=== PATIENT | female | born 2000 | race Caucasian/White ===

== ENCOUNTER 2020-04-25 11:25 | Emergency (ER) | payer OTHER ==
[2020-04-25 11:57] LABS: BASOPHILS % (AUTO) 0.5 %; EOSINOPHILS % (AUTO) 0.4 %; HGB - HEMOGLOBIN 15.2 g/dL (12.0-16.0); LYMPHOCYTES # (AUTO) 1.7 10^3/uL (1.5-3.5); LYMPHOCYTES % (AUTO) 21.4 %; MEAN CORPUSCULAR HEMOGLOBIN 30.5 pg (27.0-31.0); MEAN CORPUSCULAR HGB CONC 34.2 g/dL (32.0-36.0); MEAN CORPUSCULAR VOLUME 89.2 fL (81.0-99.0); MEAN PLATELET VOLUME 9.5 fL (7.9-10.8); MONOCYTES # (AUTO) 0.3 10^3/uL (0.0-1.0); MONOCYTES % (AUTO) 3.7 %; NEUTROPHILS # (AUTO) 5.7 10^3/uL (1.5-6.6); NEUTROPHILS % (AUTO) 73.6 %; PLT - PLATELET COUNT 303 10^3/uL (130-450); RED BLOOD COUNT 4.98 10^6/uL (4.20-5.40); RED CELL DISTRIBUTION WIDTH 11.9 % (12.0-15.0); WHITE BLOOD COUNT 7.8 x10^3/uL (4.8-10.8)
[2020-04-25 12:11] LABS: ALBUMIN 4.6 g/dL (3.2-5.5); ALBUMIN/GLOBULIN RATIO 1.2 (1.0-2.2); CALCIUM 9.3 mg/dL (8.5-10.3); CREATININE 0.7 mg/dL (0.4-1.0); TOTAL PROTEIN 8.3 g/dL (6.7-8.2)
--- NOTE | 2020-04-25 12:23 | ED Physician Documentation ---
History of Present Illness - Stated complaint Stated Complaint: N/V - Chief complaint Chief Complaint: Abd Pain - History obtained from History obtained from: Patient - History of Present Illness Timing: Prior to arrival Pain level max: 2 Pain level now: 1 - Treatment prior to arrival Treatment prior to arrival: benadryl - Additonal information Additional information: 19 year old female here with cc of progressive n/v for the last week. reports that she is newly . lmp 03/13/2020. Denies abdominal pain other than some cramping, prior to vomiting. She states that for the last 3 days, she has been unable to keep any food down. seh has tried taking Benadryl, to little relief. denies in point pelvic pain, vaginal bleeding, discharge. no dysuria denies pertinent pmh. no pertinent surgical hx. No tobacco, etoh meds: none pt is [place] to [place] 05/24/2020 to establish care Review of Systems Constitutional: reports: Fatigue. denies: Fever, Chills, Myalgias Nose: denies: Rhinorrhea / runny nose Cardiac: denies: Chest pain / pressure, Palpitations, Pedal edema Respiratory: denies: Dyspnea, Cough GI: reports: Nausea, Vomiting. denies: Diarrhea, Hematemesis, Bloody / black stool : reports: LMP (03/13/20). denies: Dysuria, Frequency Skin: denies: Rash Musculoskeletal: denies: Neck pain, Back pain, Extremity pain Neurologic: denies: Generalized weakness, Focal weakness Psychiatric: denies: Depressed, Suicidal Endocrine: denies: Polydypsia, Polyuria, Polyphagia Immunocompromised: denies: Immunocompromised PD PAST MEDICAL HISTORY - Present Medications Home Medications: Ambulatory Orders Medication Instructions Recorded Confirmed Ondansetron Odt [Zofran] 4 mg TL Q6H PRN #30 tablet 04/25/20 No122/Iron/Folic Acid 1 tab PO DAILY 04/25/20 04/25/20 [ Multi Tablet] - Allergies Allergies/Adverse Reactions: Allergies Allergy/AdvReac Type Severity Reaction Status Date / Time Penicillins Allergy Unknown Verified 04/25/20 11:38 PD ED PE NORMAL - Vitals Vital signs reviewed: Yes - General General: Alert and oriented X 3, No acute distress, Well developed/nourished - HEENT HEENT: Atraumatic, EOMI, Pharynx benign - Cardiac Cardiac: RRR, No murmur, No gallop, No rub, Strong equal pulses - Respiratory Respiratory: No respiratory distress, Clear bilaterally - Abdomen Abdomen: Normal bowel sounds, Non tender - Female Female : Deferred - Back Back: No CVA TTP - Derm Derm: Normal color, Warm and dry - Extremities Extremities: No deformity, No tenderness to palpate - Neuro Neuro: Alert and oriented X 3, investigator narcotics 2-12 intact, No motor deficit Results - Vitals Vitals: Vital Signs - 24 hr 04/25/20 04/25/20 04/25/20 11:39 13:41 15:00 Temperature 36.7 C Heart Rate 89 82 86 Respiratory 18 22 20 Rate Blood Pressure 139/71 H 111/69 94/57 L O2 Saturation 100 98 99 Oxygen O2 Source Room air - Labs Labs: Laboratory Tests 04/25/20 04/25/20 04/25/20 11:53 11:53 11:53 WBC 7.8 RBC 4.98 Hgb 15.2 Hct 44.4 MCV 89.2 MCH 30.5 MCHC 34.2 RDW 11.9 L Plt Count 303 MPV 9.5 Neut # (Auto) 5.7 Lymph # (Auto) 1.7 [place] # (Auto) 0.3 Eos # (Auto) 0.0 Baso # (Auto) 0.0 Absolute Nucleated RBC 0.00 Nucleated RBC % 0.0 Sodium 134 L Potassium 3.5 Chloride 104 Carbon Dioxide 20 L Anion Gap 10.0 BUN 11 Creatinine 0.7 Estimated GFR (MDRD) 106 Glucose 92 Calcium 9.3 Total Bilirubin 1.0 AST 19 ALT 29 Alkaline Phosphatase 65 Total Protein 8.3 H Albumin 4.6 Globulin 3.7 Albumin/Globulin Ratio 1.2 Lipase 29 HCG, Quant 53471.00 Urine Color Urine Clarity Urine pH Ur Specific [place] Urine Protein Urine Glucose (UA) Urine Ketones Urine Occult Blood Urine Nitrite Urine Bilirubin Urine Urobilinogen Ur Leukocyte Esterase Ur Microscopic Review Urine Culture Comments 04/25/20 13:48 WBC RBC Hgb Hct MCV MCH MCHC RDW Plt Count MPV Neut # (Auto) Lymph # (Auto) [place] # (Auto) Eos # (Auto) Baso # (Auto) Absolute Nucleated RBC Nucleated RBC % Sodium Potassium Chloride Carbon Dioxide Anion Gap BUN Creatinine Estimated GFR (MDRD) Glucose Calcium Total Bilirubin AST ALT Alkaline Phosphatase Total Protein Albumin Globulin Albumin/Globulin Ratio Lipase HCG, Quant Urine Color DARK YELLOW Urine Clarity CLEAR Urine pH 6.0 Ur Specific [place] >=1.030 H Urine Protein NEGATIVE Urine Glucose (UA) NEGATIVE Urine Ketones >=80 H Urine Occult Blood NEGATIVE Urine Nitrite NEGATIVE Urine Bilirubin NEGATIVE Urine Urobilinogen 0.2 (NORMAL) Ur Leukocyte Esterase NEGATIVE Ur Microscopic Review NOT INDICATED Urine Culture Comments NOT INDICATED - Rads (name of study) pelvic US Radiology: Final report received (Single live IUP measured at 6w3d. HR 122. no worrisome features) PD MEDICAL DECISION MAKING - ED course Complexity details: reviewed results, re-evaluated patient, considered differential, d/w patient ED course: 19 year old female here with cc of persistent n/v for the last week. 1st trimester - Labs reviewed and no acute or worrisome abnormalities. no e/o UTI; mild ketones expected with persistent vomiting - pelvic US completed and showed live IUP at 6w3d. no e/o hemorrhage. Pt in point denies pelvic pain, vaginal bleeding - pt given 1 liter IVF in ED and 4 mg zofran; following that she was able to tolerate simple clears and bite of food - will plan to dc home with limited rx for zofran. Notified that she should f/u with OB provider to establish care after this ED visit with in the week - emergent return precautions discussed for miscarriage s/s Departure - Departure Disposition: 01 Home, Self Care Clinical Impression: Vomiting during Qualifiers: Weeks of gestation: less than 8 weeks Qualified Code(s): Z3A.01 - Less than 8 weeks gestation of Condition: Stable Record reviewed to determine appropriate education?: Yes Instructions: ED Nausea Vomiting Prescriptions: Ondansetron Odt [Zofran] 4 mg TL Q6H PRN #30 tablet PRN Reason: Nausea / Vomiting Comments: Kadie, I am glad you feel better. Your labs and urine today look goo. The pelvic ultrasound showed that you are about 6weeks 3 days I have prescribed a medication called zofran to help with nausea. take up to 3 times a day. Eat small frequent sips fluids and bites of food throughout the day please schedule [place] here for fevers, dehydrated, feeling faint, if you have pelvic pain or vaginal bleeding
[2020-04-25] MEDS ORDERED: SODIUM CHLORIDE 0.9% 1,000 ML IV STA (12:37)
[2020-04-25] MEDS ORDERED: ONDANSETRON 4 MG/2 ML VIAL IVP STA (12:40)
[2020-04-25 13:55] LABS: BILIRUBIN,URINE NEGATIVE (NEGATIVE); GLUCOSE, URINE (UA) NEGATIVE (NEGATIVE); KETONES,URINE (UA) >=80 mg/dL (NEGATIVE); LEUKOCYTE ESTERASE, URINE NEGATIVE (NEGATIVE); NITRITE,URINE NEGATIVE (NEGATIVE); OCCULT BLOOD,URINE NEGATIVE (NEGATIVE); PROTEIN,URINE NEGATIVE (NEGATIVE); UROBILINOGEN,URINE 0.2 (NORMAL) E.U./dL (NORMAL)
[2020-04-25 13:56] LABS: CLARITY,URINE CLEAR (CLEAR)
[2020-04-25 15:05] VITALS: BP 94/57
--- NOTE | 2020-04-25 15:09 | Ultrasound Report ---
Reason: vomiting; establish IUP Procedure Date: 04/25/2020 Accession Number: [id number] / [id number] Procedure: US - OB First Trimester CPT Code: Final Report FULL RESULT: PROCEDURE: OB First Trimester INDICATIONS: vomiting; establish IUP OUTSIDE/PRIOR DATING DATA: Last menstrual period (LMP): 03/13/2020. LMP-based estimated date of delivery (TIN): 12/18/2020. First dating scan (date and location): 04/25/2020. Estimated date of delivery (TIN) from first dating scan: 12/18/2020. TECHNIQUE: Real-time scanning was performed of the fetus and maternal pelvic organs, with image documentation. COMPARISON: None. FINDINGS: Embryo: Single living intrauterine gestation measuring approximately 8 weeks and 0 days by mean gestational sac diameter of 2.9 cm. [place]-rump length measures 0.6 cm correlate with approximately 6 weeks and 3 days. heart rate measured at 122 bpm. No evidence for perigestational hemorrhage. Measurement variability in dating: +/- 4 weeks by LMP, +/- 7 days by mean sac diameter (use before 6 weeks gestation if crown-rump length not able to be measured), +/- 5 days by crown-rump length (6-12 weeks gestation). Maternal organs: Ovaries show a dominant right ovarian follicle. Nabothian cysts noted in the cervix. Limited images through the kidneys demonstrate no hydronephrosis. IMPRESSION: Single living intrauterine gestation with an estimated sonographic gestational age of approximately 6 weeks and 3 days based off crown-rump length measurement. Recommend continued clinical surveillance and follow-up routine second trimester anatomic screening survey. Reviewed by: Daniel Singer MD on 04/25/2020 3:08 PM PDT Approved by: Daniel Singer MD on 04/25/2020 3:08 PM PDT Station ID: [id number]
--- NOTE | 2020-04-25 15:10 | Ultrasound Report ---
Reason: to establish IUP if unable to see on transabdomina Procedure Date: 04/25/2020 Accession Number: [id number] / [id number] Procedure: US - OB Transvaginal CPT Code: Final Report FULL RESULT: PROCEDURE: OB First Trimester INDICATIONS: vomiting; establish IUP OUTSIDE/PRIOR DATING DATA: Last menstrual period (LMP): 03/13/2020. LMP-based estimated date of delivery (TIN): 12/18/2020. First dating scan (date and location): 04/25/2020. Estimated date of delivery (TIN) from first dating scan: 12/18/2020. TECHNIQUE: Real-time scanning was performed of the fetus and maternal pelvic organs, with image documentation. COMPARISON: None. FINDINGS: Embryo: Single living intrauterine gestation measuring approximately 8 weeks and 0 days by mean gestational sac diameter of 2.9 cm. [place]-rump length measures 0.6 cm correlate with approximately 6 weeks and 3 days. heart rate measured at 122 bpm. No evidence for perigestational hemorrhage. Measurement variability in dating: +/- 4 weeks by LMP, +/- 7 days by mean sac diameter (use before 6 weeks gestation if crown-rump length not able to be measured), +/- 5 days by crown-rump length (6-12 weeks gestation). Maternal organs: Ovaries show a dominant right ovarian follicle. Nabothian cysts noted in the cervix. Limited images through the kidneys demonstrate no hydronephrosis. IMPRESSION: Single living intrauterine gestation with an estimated sonographic gestational age of approximately 6 weeks and 3 days based off crown-rump length measurement. Recommend continued clinical surveillance and follow-up routine second trimester anatomic screening survey. Reviewed by: Daniel Singer MD on 04/25/2020 3:08 PM PDT Approved by: Daniel Singer MD on 04/25/2020 3:08 PM PDT Station ID: [id number]
== END 2020-04-25 16:29 | disposition home or self-care (01) ==
LOC: ED 11:25
DX: O21.0 Mild hyperemesis gravidarum (principal); Z3A.01 Less than 8 weeks gestation of pregnancy
CPT/HCPCS: 36415; 76801; 76817; 80053; 81001; 81003; 83690; 84702; 85025; 87086; 96361; 96374; 99284

== ENCOUNTER 2020-05-05 13:50 | Emergency (ER) | payer OTHER ==
[2020-05-05] MEDS ORDERED: METOCLOPRAMIDE 10 MG/2 ML VIAL IVP STA (14:04)
[2020-05-05] MEDS ORDERED: SODIUM CHLORIDE 0.9% 1,000 ML IV STA (14:04)
--- NOTE | 2020-05-05 14:05 | ED Physician Documentation ---
PD HPI ABD PAIN - Stated complaint Stated Complaint: NAUSEA/VOMITING - Chief complaint Chief Complaint: Abd Pain - History obtained from History obtained from: Patient (G1, P0 at about 7 weeks and 6 days gestation presents with continued vomiting during this . Is associated with mild lower abdominal pain and some brownish vaginal discharge. She has been taking oral Zofran without relief.) Review of Systems Ten Systems: 10 systems reviewed and negative Constitutional: denies: Fever, Chills Cardiac: denies: Chest pain / pressure, Palpitations Respiratory: denies: Dyspnea, Cough PD PAST MEDICAL HISTORY - Past Medical History Past Medical History: No - Past Surgical History Past Surgical History: No - Present Medications Home Medications: Ambulatory Orders Medication Instructions Recorded Confirmed Ondansetron Odt [Zofran] 4 mg TL Q6H PRN #30 tablet 04/25/20 No122/Iron/Folic Acid 1 tab PO DAILY 04/25/20 04/25/20 [ Multi Tablet] Doxylamine/Pyridoxine HCl 1 each PO Q6H #40 tablet. 05/05/20 [Carlton Mera 10-10 mg Tablet] Ondansetron Odt [Zofran] 4 mg TL Q6H PRN #30 tablet 05/05/20 - Allergies Allergies/Adverse Reactions: Allergies Allergy/AdvReac Type Severity Reaction Status Date / Time Penicillins Allergy Unknown Verified 05/05/20 13:55 - Social History Does the pt smoke?: No Smoking Status: Never smoker Does the pt drink ETOH?: No Does the pt have substance abuse?: No - Family History Family history: reports: Other (mom had Hyperemesis with pregs) PD ED PE NORMAL - Vitals Vital signs reviewed: Yes - General General: Alert and oriented X 3, No acute distress - HEENT HEENT: PERRL, EOMI - Neck Neck: Supple, no meningeal sign, No bony TTP - Cardiac Cardiac: RRR, No murmur - Respiratory Respiratory: No respiratory distress, Clear bilaterally - Abdomen Abdomen: Normal bowel sounds, Soft, Non tender - Female Female : Other (Bedside ultrasound demonstrates single live intrauterine with heart rate of about 160.) - Back Back: No CVA TTP, No spinal TTP - Derm Derm: Normal color, Warm and dry - Extremities Extremities: No edema, No calf tenderness / cord - Neuro Neuro: Alert and oriented X 3, Normal speech Results - Vitals Vitals: Vital Signs - 24 hr 05/05/20 05/05/20 05/05/20 13:53 15:30 16:49 Temperature 36.1 C L 36.6 C 36.7 C Heart Rate 90 75 73 Respiratory 16 18 18 Rate Blood Pressure 118/74 103/64 103/60 O2 Saturation 100 98 100 Oxygen O2 Source Room air - Labs Labs: Laboratory Tests 05/05/20 05/05/20 05/05/20 14:35 14:35 14:35 WBC 7.5 RBC 4.54 Hgb 14.0 Hct 39.7 MCV 87.4 MCH 30.8 MCHC 35.3 RDW 11.7 L Plt Count 267 MPV 9.9 Neut # (Auto) 5.7 Lymph # (Auto) 1.4 L [place] # (Auto) 0.4 Eos # (Auto) 0.0 Baso # (Auto) 0.0 Absolute Nucleated RBC 0.00 Nucleated RBC % 0.0 Sodium 136 Potassium 3.7 Chloride 101 Carbon Dioxide 22 Anion Gap 13.0 BUN 12 Creatinine 0.6 Estimated GFR (MDRD) 126 Glucose 85 Calcium 9.3 Total Bilirubin 0.9 AST 14 ALT 16 Alkaline Phosphatase 52 Total Protein 7.9 Albumin 4.4 Globulin 3.5 Albumin/Globulin Ratio 1.3 Lipase 29 Urine Color YELLOW Urine Clarity CLEAR Urine pH 6.0 Ur Specific [place] >=1.030 H Urine Protein NEGATIVE Urine Glucose (UA) NEGATIVE Urine Ketones >=80 H Urine Occult Blood TRACE-INTA Urine Nitrite NEGATIVE Urine Bilirubin NEGATIVE Urine Urobilinogen 0.2 (NORMAL) Ur Leukocyte Esterase NEGATIVE Ur Microscopic Review NOT INDICATED Urine Culture Comments NOT INDICATED PD MEDICAL DECISION MAKING - ED course ED course: G1, P0 early with hyperemesis, has ketonuria and high spec gravity blood work looks normal. Feeling better after Reglan and IV fluids here. Tolerated oral challenge well. Discussed case with OB on-call, Dr. Lam who recommends diclegis and Zofran in a scheduled manner. Departure - Departure Disposition: 01 Home, Self Care Clinical Impression: Hyperemesis gravidarum Condition: Good Record reviewed to determine appropriate education?: Yes Instructions: ED Nausea Vomiting Prescriptions: Doxylamine/Pyridoxine HCl [Carlton Mera 10-10 mg Tablet] 1 each PO Q6H #40 tablet. Ondansetron Odt [Zofran] 4 mg TL Q6H PRN #30 tablet PRN Reason: Nausea / Vomiting Comments: Return anytime if worse, follow-up with OB as scheduled. I did speak with the OB today and she recommends that you take both Zofran and likely just in a scheduled manner every 6 hours, not just as needed when you vomit. Discharge Date/Time: 05/05/20 16:59
[2020-05-05 14:41] LABS: BASOPHILS % (AUTO) 0.4 %; EOSINOPHILS % (AUTO) 0.3 %; LYMPHOCYTES # (AUTO) 1.4 10^3/uL (1.5-3.5); LYMPHOCYTES % (AUTO) 18.5 %; MEAN CORPUSCULAR HEMOGLOBIN 30.8 pg (27.0-31.0); MEAN CORPUSCULAR HGB CONC 35.3 g/dL (32.0-36.0); MEAN CORPUSCULAR VOLUME 87.4 fL (81.0-99.0); MEAN PLATELET VOLUME 9.9 fL (7.9-10.8); MONOCYTES # (AUTO) 0.4 10^3/uL (0.0-1.0); MONOCYTES % (AUTO) 4.8 %; NEUTROPHILS # (AUTO) 5.7 10^3/uL (1.5-6.6); NEUTROPHILS % (AUTO) 75.7 %; PLT - PLATELET COUNT 267 10^3/uL (130-450); RED BLOOD COUNT 4.54 10^6/uL (4.20-5.40); RED CELL DISTRIBUTION WIDTH 11.7 % (12.0-15.0); WHITE BLOOD COUNT 7.5 x10^3/uL (4.8-10.8)
[2020-05-05 14:58] LABS: ALBUMIN 4.4 g/dL (3.2-5.5); ALBUMIN/GLOBULIN RATIO 1.3 (1.0-2.2); BILIRUBIN,TOTAL 0.9 mg/dL (0.2-1.0); CALCIUM 9.3 mg/dL (8.5-10.3); CREATININE 0.6 mg/dL (0.4-1.0); TOTAL PROTEIN 7.9 g/dL (6.7-8.2)
[2020-05-05] MEDS ORDERED: ACETAMINOPHEN 325 MG TABLET PO STA (15:04)
[2020-05-05] MEDS ORDERED: FAMOTIDINE 20 MG/2 ML SYRINGE IVP STA (15:04)
[2020-05-05 15:53] LABS: BILIRUBIN,URINE NEGATIVE (NEGATIVE); CLARITY,URINE CLEAR (CLEAR); GLUCOSE, URINE (UA) NEGATIVE (NEGATIVE); KETONES,URINE (UA) >=80 mg/dL (NEGATIVE); LEUKOCYTE ESTERASE, URINE NEGATIVE (NEGATIVE); NITRITE,URINE NEGATIVE (NEGATIVE); OCCULT BLOOD,URINE TRACE-INTA (NEGATIVE); PROTEIN,URINE NEGATIVE (NEGATIVE); UROBILINOGEN,URINE 0.2 (NORMAL) E.U./dL (NORMAL)
[2020-05-05] MEDS ORDERED: DEXTROSE 5%-LACTATED RINGERS 1,000 ML IV SCH (16:00)
[2020-05-05 16:50] VITALS: BP 103/60
== END 2020-05-05 16:59 | disposition home or self-care (01) ==
LOC: ED 13:50
DX: O21.0 Mild hyperemesis gravidarum (principal); O99.89 Other specified diseases and conditions complicating pregnancy, childbirth and the puerperium; R82.4 Acetonuria; Z3A.01 Less than 8 weeks gestation of pregnancy
CPT/HCPCS: 36415; 80053; 81003; 83690; 85025; 96361; 96374; 96375; 99283; 99284; A9270; J2765; 81001; 87086

== ENCOUNTER 2020-05-11 10:54 | Emergency (ER) | payer OTHER ==
[2020-05-11] MEDS ORDERED: SODIUM CHLORIDE 0.9% 1,000 ML IV STA ×2 (11:32→13:19)
[2020-05-11] MEDS ORDERED: PROMETHAZINE INJ 25 MG in SODIUM CHLORIDE 0.9% 50 ML IV STA (11:32)
[2020-05-11 11:53] LABS: ALBUMIN 4.5 g/dL (3.2-5.5); ALBUMIN/GLOBULIN RATIO 1.1 (1.0-2.2); BILIRUBIN,TOTAL 0.9 mg/dL (0.2-1.0); CALCIUM 9.8 mg/dL (8.5-10.3); CREATININE 0.6 mg/dL (0.4-1.0); TOTAL PROTEIN 8.7 g/dL (6.7-8.2)
[2020-05-11 12:00] LABS: BASOPHILS % (AUTO) 0.3 %; EOSINOPHILS % (AUTO) 0.2 %; HGB - HEMOGLOBIN 14.7 g/dL (12.0-16.0); LYMPHOCYTES # (AUTO) 1.4 10^3/uL (1.5-3.5); MEAN CORPUSCULAR HEMOGLOBIN 29.6 pg (27.0-31.0); MEAN CORPUSCULAR HGB CONC 34.6 g/dL (32.0-36.0); MEAN CORPUSCULAR VOLUME 85.5 fL (81.0-99.0); MEAN PLATELET VOLUME 10.2 fL (7.9-10.8); MONOCYTES # (AUTO) 0.5 10^3/uL (0.0-1.0); MONOCYTES % (AUTO) 4.8 %; NEUTROPHILS # (AUTO) 7.8 10^3/uL (1.5-6.6); NEUTROPHILS % (AUTO) 80.4 %; PLT - PLATELET COUNT 291 10^3/uL (130-450); RED BLOOD COUNT 4.97 10^6/uL (4.20-5.40); RED CELL DISTRIBUTION WIDTH 11.8 % (12.0-15.0); WHITE BLOOD COUNT 9.6 x10^3/uL (4.8-10.8)
[2020-05-11 13:13] LABS: GLUCOSE, URINE (UA) NEGATIVE (NEGATIVE); KETONES,URINE (UA) >=80 mg/dL (NEGATIVE); LEUKOCYTE ESTERASE, URINE NEGATIVE (NEGATIVE); NITRITE,URINE NEGATIVE (NEGATIVE); OCCULT BLOOD,URINE SMALL (NEGATIVE); PH,URINE 5.5 PH (5.0-7.5); PROTEIN,URINE 30 mg/dL (NEGATIVE); UROBILINOGEN,URINE 0.2 (NORMAL) E.U./dL (NORMAL)
[2020-05-11 13:17] LABS: BILIRUBIN,URINE NEGATIVE (NEGATIVE); CLARITY,URINE CLEAR (CLEAR); ICTOTEST,URINE NEGATIVE
[2020-05-11 13:21] LABS: BACTERIA,URINE Few /HPF (None Seen); RBC,URINE 0-5 /HPF (0-5); SQUAMOUS EPITHELIAL CELL,UR MANY Squamous (<= Few)
[2020-05-11] MEDS ORDERED: ONDANSETRON 4 MG/2 ML VIAL IVP STA (14:08)
[2020-05-11 15:04] VITALS: BP 108/66
--- NOTE | 2020-05-11 15:04 | ED Physician Documentation ---
History of Present Illness - Stated complaint Stated Complaint: VOMITING - Chief complaint Chief Complaint: Abd Pain - History obtained from History obtained from: Patient - Additonal information Additional information: Patient comes emergency department complaining of nausea and vomiting for the past 2 weeks since hitting the 6-week alma of her . Patient states that the nausea and vomiting seem to have gotten worse this time is gone on, and that for the past few days, she has not been able to keep anything down. She has been taking Zofran at home, as well as Benadryl, which were prescribed by her OB. However, she states that these did not seem to be working. Patient states that she is only otherwise on vitamins. Patient states she is otherwise healthy. This is her first . She denies any dysuria or vaginal bleeding. She has had an ultrasound which is demonstrated an intrauterine . No other complaints at this time. Review of Systems Ten Systems: 10 systems reviewed and negative Constitutional: reports: Reviewed and negative Eyes: reports: Reviewed and negative Ears: reports: Reviewed and negative Nose: reports: Reviewed and negative Throat: reports: Reviewed and negative Cardiac: reports: Reviewed and negative Respiratory: reports: Reviewed and negative GI: reports: Nausea, Vomiting : reports: Reviewed and negative Skin: reports: Reviewed and negative Musculoskeletal: reports: Reviewed and negative Neurologic: reports: Reviewed and negative Psychiatric: reports: Reviewed and negative Endocrine: reports: Reviewed and negative Immunocompromised: reports: Reviewed and negative PD PAST MEDICAL HISTORY - Past Medical History Cardiovascular: None Respiratory: None Neuro: None Endocrine/Autoimmune: None GI: None HVAC RESIDENTIAL SERVICE TECHNICIAN: None : None HEENT: None Psych: None Musculoskeletal: None Derm: None - Past Surgical History Past Surgical History: No - Present Medications Home Medications: Ambulatory Orders Medication Instructions Recorded Confirmed Ondansetron Odt [Zofran] 4 mg TL Q6H PRN #30 tablet 04/25/20 No122/Iron/Folic Acid 1 tab PO DAILY 04/25/20 04/25/20 [ Multi Tablet] Doxylamine/Pyridoxine HCl 1 each PO Q6H #40 tablet. 05/05/20 [[place] Mera 10-10 mg Tablet] Ondansetron Odt [Zofran] 4 mg TL Q6H PRN #30 tablet 05/05/20 Promethazine Supp [Phenergan Supp] 25 mg TN Q6H PRN #30 supp 05/11/20 - Allergies Allergies/Adverse Reactions: Allergies Allergy/AdvReac Type Severity Reaction Status Date / Time Penicillins Allergy Unknown Verified 05/11/20 10:59 - Social History Does the pt smoke?: No Smoking Status: Never smoker Does the pt drink ETOH?: No Does the pt have substance abuse?: No PD ED PE NORMAL - Vitals Vital signs reviewed: Yes - General General: Alert and oriented X 3, No acute distress - HEENT HEENT: Atraumatic, PERRL, EOMI, Moist mucous membranes - Neck Neck: Supple, no meningeal sign - Cardiac Cardiac: RRR, No murmur, Strong equal pulses - Respiratory Respiratory: No respiratory distress, Clear bilaterally - Abdomen Abdomen: Soft, Non distended, Other (Mild bilateral lower quadrant tenderness without rebound or guarding.) - Back Back: No CVA TTP - Derm Derm: Normal color, Warm and dry, No rash - Extremities Extremities: No deformity - Neuro Neuro: Alert and oriented X 3 - Psych Psych: Normal mood, Normal affect Results - Vitals Vitals: Vital Signs - 24 hr 05/11/20 05/11/20 05/11/20 10:59 13:02 15:00 Temperature 37.1 C 36.8 C Heart Rate 108 H 89 87 Respiratory 17 18 15 Rate Blood Pressure 144/82 H 110/68 108/66 O2 Saturation 99 97 100 Oxygen O2 Source Room air - Labs Labs: Laboratory Tests 05/11/20 05/11/20 05/11/20 11:10 11:10 11:10 WBC 9.6 RBC 4.97 Hgb 14.7 Hct 42.5 MCV 85.5 MCH 29.6 MCHC 34.6 RDW 11.8 L Plt Count 291 MPV 10.2 Neut # (Auto) 7.8 H Lymph # (Auto) 1.4 L [place] # (Auto) 0.5 Eos # (Auto) 0.0 Baso # (Auto) 0.0 Absolute Nucleated RBC 0.00 Nucleated RBC % 0.0 Sodium 136 Potassium 3.6 Chloride 104 Carbon Dioxide 17 L Anion Gap 15.0 H BUN 12 Creatinine 0.6 Estimated GFR (MDRD) 126 Glucose 96 Calcium 9.8 Total Bilirubin 0.9 AST 17 ALT 18 Alkaline Phosphatase 57 Total Protein 8.7 H Albumin 4.5 Globulin 4.2 Albumin/Globulin Ratio 1.1 Lipase 47 HCG, Quant 674868.00 Urine Color Urine Clarity Urine pH Ur Specific [place] Urine Protein Urine Glucose (UA) Urine Ketones Urine Occult Blood Urine Nitrite Urine Bilirubin Urine Urobilinogen Ur Leukocyte Esterase Urine RBC Urine WBC Ur Squamous Epith Cells Urine Bacteria Ur Microscopic Review Urine Culture Comments 05/11/20 11:10 WBC RBC Hgb Hct MCV MCH MCHC RDW Plt Count MPV Neut # (Auto) Lymph # (Auto) [place] # (Auto) Eos # (Auto) Baso # (Auto) Absolute Nucleated RBC Nucleated RBC % Sodium Potassium Chloride Carbon Dioxide Anion Gap BUN Creatinine Estimated GFR (MDRD) Glucose Calcium Total Bilirubin AST ALT Alkaline Phosphatase Total Protein Albumin Globulin Albumin/Globulin Ratio Lipase HCG, Quant Urine Color YELLOW Urine Clarity CLEAR Urine pH 5.5 Ur Specific [place] >=1.030 H Urine Protein 30 H Urine Glucose (UA) NEGATIVE Urine Ketones >=80 H Urine Occult Blood SMALL H Urine Nitrite NEGATIVE Urine Bilirubin NEGATIVE Urine Urobilinogen 0.2 (NORMAL) Ur Leukocyte Esterase NEGATIVE Urine RBC 0-5 Urine WBC 0-3 Ur Squamous Epith Cells MANY Squamous H Urine Bacteria Few Ur Microscopic Review INDICATED Urine Culture Comments NOT INDICATED PD MEDICAL DECISION MAKING - ED course Complexity details: reviewed results, re-evaluated patient, considered differential, d/w patient ED course: The patient was given a total of 2 L of 0.9 normal saline in the emergency department. Her labs were evaluated, as well as urinalysis, and found to be negative. Her quantitative hCG was 220,000. Patient had been given Phenergan, and reported that this did improve her nausea greatly. She was able to tolerate small bits of ice water at a time. She did after approximately 45 minutes began to complain of a slight bit of nausea again, and was given an IV dose of Zofran. Patient reported better overall, and I felt she was stable for discharge home. We have discussed that the patient may try Phenergan suppositories, which I have prescribed. She may use this with Zofran if needed patient is advised to call [facility] make an appointment for follow-up. We have discussed the usual indications for return. Departure - Departure Disposition: 01 Home, Self Care Clinical Impression: Hyperemesis gravidarum Condition: Stable Instructions: ED Preg Morning Sickness Prescriptions: Promethazine Supp [Phenergan Supp] 25 mg TN Q6H PRN #30 supp PRN Reason: Nausea / Vomiting Discharge Date/Time: 05/11/20 15:08
== END 2020-05-11 15:08 | disposition home or self-care (01) ==
LOC: ED 10:54
DX: O21.0 Mild hyperemesis gravidarum (principal); Z3A.01 Less than 8 weeks gestation of pregnancy
CPT/HCPCS: 80053; 81001; 83690; 84702; 85025; 96361; 96365; 96375; 99284; J7040; 81003; 87086

== ENCOUNTER 2020-05-14 21:03 | Emergency (ER) | payer OTHER ==
[2020-05-14] MEDS ORDERED: SODIUM CHLORIDE 0.9% 1,000 ML IV STA (21:41)
[2020-05-14] MEDS ORDERED: METOCLOPRAMIDE 10 MG/2 ML VIAL IVP STA (21:41)
[2020-05-14 22:09] LABS: BASOPHILS % (AUTO) 0.5 %; EOSINOPHILS % (AUTO) 0.6 %; HGB - HEMOGLOBIN 13.7 g/dL (12.0-16.0); LYMPHOCYTES # (AUTO) 1.3 10^3/uL (1.5-3.5); LYMPHOCYTES % (AUTO) 20.1 %; MEAN CORPUSCULAR HEMOGLOBIN 30.9 pg (27.0-31.0); MEAN CORPUSCULAR HGB CONC 36.1 g/dL (32.0-36.0); MEAN CORPUSCULAR VOLUME 85.6 fL (81.0-99.0); MEAN PLATELET VOLUME 10.1 fL (7.9-10.8); MONOCYTES # (AUTO) 0.5 10^3/uL (0.0-1.0); NEUTROPHILS # (AUTO) 4.4 10^3/uL (1.5-6.6); NEUTROPHILS % (AUTO) 70.6 %; PLT - PLATELET COUNT 228 10^3/uL (130-450); RED BLOOD COUNT 4.44 10^6/uL (4.20-5.40); RED CELL DISTRIBUTION WIDTH 11.8 % (12.0-15.0); WHITE BLOOD COUNT 6.3 x10^3/uL (4.8-10.8)
[2020-05-14 22:23] LABS: ALBUMIN/GLOBULIN RATIO 1.1 (1.0-2.2); BILIRUBIN,TOTAL 1.1 mg/dL (0.2-1.0); CALCIUM 9.3 mg/dL (8.5-10.3); CREATININE 0.5 mg/dL (0.4-1.0); TOTAL PROTEIN 7.7 g/dL (6.7-8.2)
[2020-05-14] MEDS ORDERED: POTASSIUM CHLORIDE 20 MEQ TABLET PO STA (22:48)
[2020-05-14] MEDS ORDERED: SODIUM CHLORIDE 0.9% 1,000 ML IV ONE (22:52)
--- NOTE | 2020-05-14 22:52 | ED Physician Documentation ---
PD HPI NVD - Stated complaint Stated Complaint: N/V 9WK PREG - Chief complaint Chief Complaint: Abd Pain - History obtained from History obtained from: Patient, Family - History of Present Illness Timing - onset: How many days ago (3) Timing - duration: Days (3) Timing - details: Gradual onset, Still present Associated symptoms: Dizzy, Near syncope / syncope, Loss of appetite Contributing factors: Other (9wks ) Improved by: Meds Worsened by: Eating Similar symptoms before: Diagnosis (hyperemesis) Recently seen: Emergency Dept - Additonal information Additional information: 19-year-old 1 para 0 has had difficulty with nausea and vomiting since the 6-week alma in her . She been seen in the emergency department 3 times for hydration last time 6 days ago. She states over the last 3 days she has been vomiting again more than usual and has not had relief with use of the Phenergan suppositories or the TL Zofran. Today she is developed some bleeding from her nose and this ended up in her vomitus. Review of Systems Constitutional: denies: Fever Eyes: denies: Decreased vision Ears: denies: Ear pain Nose: denies: Rhinorrhea / runny nose, Congestion Throat: denies: Sore throat Cardiac: denies: Chest pain / pressure, Palpitations Respiratory: denies: Dyspnea, Cough GI: reports: Nausea, Vomiting : denies: Dysuria, Frequency Skin: denies: Rash Musculoskeletal: denies: Neck pain, Back pain, Extremity pain Neurologic: denies: Generalized weakness, Focal weakness, Numbness PD PAST MEDICAL HISTORY - Past Medical History Past Medical History: No Cardiovascular: None Respiratory: None Neuro: None Endocrine/Autoimmune: None GI: None AUTO TOP MECHANIC: None : None HEENT: None Psych: None Musculoskeletal: None Derm: None - Past Surgical History Past Surgical History: No - Present Medications Home Medications: Ambulatory Orders Medication Instructions Recorded Confirmed Ondansetron Odt [Zofran] 4 mg TL Q6H PRN #30 tablet 04/25/20 No122/Iron/Folic Acid 1 tab PO DAILY 04/25/20 04/25/20 [ Multi Tablet] Doxylamine/Pyridoxine HCl 1 each PO Q6H #40 tablet. 05/05/20 [Carlton Mera 10-10 mg Tablet] Ondansetron Odt [Zofran] 4 mg TL Q6H PRN #30 tablet 05/05/20 Promethazine Supp [Phenergan Supp] 25 mg RI Q6H PRN #30 supp 05/11/20 - Allergies Allergies/Adverse Reactions: Allergies Allergy/AdvReac Type Severity Reaction Status Date / Time Penicillins Allergy Unknown Verified 05/14/20 21:08 - Social History Does the pt smoke?: No Smoking Status: Never smoker Does the pt drink ETOH?: No Does the pt have substance abuse?: No PD ED PE NORMAL - Vitals Vital signs reviewed: Yes (tachy and hypertensive ) - General General: Alert and oriented X 3, Well developed/nourished - HEENT HEENT: Atraumatic, PERRL, EOMI, Other (There is no current bleeding from the nares after prolonged clamping. There is boggieness to the septum bilaterally ) - Neck Neck: Supple, no meningeal sign, No bony TTP - Cardiac Cardiac: No murmur, Other (tachy to 110) - Respiratory Respiratory: No respiratory distress, Clear bilaterally - Abdomen Abdomen: Normal bowel sounds, Soft, Non tender, Non distended - Back Back: No CVA TTP, No spinal TTP - Derm Derm: Normal color, Warm and dry, No rash - Extremities Extremities: No deformity, No edema - Neuro Neuro: Alert and oriented X 3, billing assistant 2-12 intact, No motor deficit, No sensory deficit, Normal speech Eye Opening: Spontaneous Motor: Obeys Commands Verbal: Oriented GCS Score: 15 - Psych Psych: Normal mood, Normal affect Results - Vitals Vitals: Vital Signs - 24 hr 05/14/20 05/14/20 21:08 23:52 Temperature 36.5 C Heart Rate 128 H 93 Respiratory 16 16 Rate Blood Pressure 132/81 H 104/64 O2 Saturation 98 98 Oxygen O2 Source Room air - Labs Labs: Laboratory Tests 05/14/20 05/14/20 05/14/20 22:00 22:00 23:00 WBC 6.3 RBC 4.44 Hgb 13.7 Hct 38.0 MCV 85.6 MCH 30.9 MCHC 36.1 H RDW 11.8 L Plt Count 228 MPV 10.1 Neut # (Auto) 4.4 Lymph # (Auto) 1.3 L [place] # (Auto) 0.5 Eos # (Auto) 0.0 Baso # (Auto) 0.0 Absolute Nucleated RBC 0.00 Nucleated RBC % 0.0 Sodium 135 Potassium 3.2 L Chloride 103 Carbon Dioxide 18 L Anion Gap 14.0 H BUN 7 Creatinine 0.5 Estimated GFR (MDRD) 156 Glucose 94 Calcium 9.3 Total Bilirubin 1.1 H AST 23 ALT 31 Alkaline Phosphatase 54 Total Protein 7.7 Albumin 4.0 Globulin 3.7 Albumin/Globulin Ratio 1.1 Lipase 43 Urine Color YELLOW Urine Clarity CLEAR Urine pH 6.0 Ur Specific [place] >=1.030 H Urine Protein TRACE Urine Glucose (UA) NEGATIVE Urine Ketones >=80 H Urine Occult Blood TRACE-INTA Urine Nitrite NEGATIVE Urine Bilirubin NEGATIVE Urine Urobilinogen 0.2 (NORMAL) Ur Leukocyte Esterase TRACE H Urine RBC 0-5 Urine WBC 4-5 Ur Squamous Epith Cells MANY Squamous H Urine Bacteria Few Urine Casts 0-2 Hyaline Casts Ur Microscopic Review INDICATED Urine Culture Comments NOT INDICATED Procedures - Bedside sono Bedside sono by EMP: With use of bedside ultrasound the fetus is imaged and the heart rate is 160. - IVC sono (time) 2139 Bedside IVC sono: IVC measures (cm) (0.82), IVC collapsed c insp (cm) (complete), Dehydration (est 2 liters deficit) PD MEDICAL DECISION MAKING - ED course Complexity details: reviewed results, re-evaluated patient, considered differential, d/w patient, d/w family ED course: 19 y/o with hyperemesis is found to be dehydrated on interrogation of the IVC. She is administered IV reglan and saline. She is given a total of 2 liters saline and PO potassium. She has improvement. Departure - Departure Disposition: 01 Home, Self Care Clinical Impression: Hyperemesis gravidarum, Dehydration Condition: Stable Instructions: ED Dehydration, ED Preg Morning Sickness Follow-Up: JAMAL BAÑUELOS [Primary Care Provider] - Discharge Date/Time: 05/15/20 00:09
[2020-05-14 23:26] LABS: GLUCOSE, URINE (UA) NEGATIVE (NEGATIVE); KETONES,URINE (UA) >=80 mg/dL (NEGATIVE); LEUKOCYTE ESTERASE, URINE TRACE (NEGATIVE); NITRITE,URINE NEGATIVE (NEGATIVE); OCCULT BLOOD,URINE TRACE-INTA (NEGATIVE); PROTEIN,URINE TRACE mg/dL (NEGATIVE); UROBILINOGEN,URINE 0.2 (NORMAL) E.U./dL (NORMAL)
[2020-05-14 23:29] LABS: BILIRUBIN,URINE NEGATIVE (NEGATIVE); CLARITY,URINE CLEAR (CLEAR); ICTOTEST,URINE NEGATIVE
[2020-05-14 23:36] LABS: BACTERIA,URINE Few /HPF (None Seen); RBC,URINE 0-5 /HPF (0-5); SQUAMOUS EPITHELIAL CELL,UR MANY Squamous (<= Few)
[2020-05-14 23:37] LABS: CASTS, URINE 0-2 Hyaline Casts /LPF
[2020-05-14 23:53] VITALS: BP 104/64
== END 2020-05-15 00:09 | disposition home or self-care (01) ==
LOC: ED 21:03
DX: O21.1 Hyperemesis gravidarum with metabolic disturbance (principal); Z3A.09 9 weeks gestation of pregnancy
CPT/HCPCS: 36415; 80053; 81001; 83690; 85025; 96361; 96374; 99283; 99284; A9270; J2765; 81003; 87086

== ENCOUNTER 2020-05-24 15:46 | Emergency (ER) | payer OTHER ==
[2020-05-24] MEDS ORDERED: ONDANSETRON 4 MG/2 ML VIAL IVP STA ×2 (17:43→19:28)
[2020-05-24] MEDS ORDERED: SODIUM CHLORIDE 0.9% 1,000 ML IV STA ×2 (17:43→18:54)
--- NOTE | 2020-05-24 17:44 | ED Physician Documentation ---
PD HPI NVD - Stated complaint Stated Complaint: N/V-11 WEEKS - Chief complaint Chief Complaint: Abd Pain - History obtained from History obtained from: Patient, Family - History of Present Illness Timing - onset: How many weeks ago (5) Timing - duration: Weeks (5) Timing - details: Gradual onset, Still present, Waxing and waning Associated symptoms: Abdominal pain Contributing factors: Other () Improved by: Meds Worsened by: Eating Similar symptoms before: Diagnosis (Hyperemesis gravidarum) Recently seen: Clinic, Emergency Dept - Additonal information Additional information: 19-year-old female who is 11 weeks has hyperemesis gravidarum and she has been in and out of the emergency department for hydration about every 3 days. She states that while she is in the department she does get some relief with the Zofran given by vein but this does not work as well given by mouth. She also states that both the Phenergan and the Reglan give her a dysphoric reaction. She was seen by her SOUND ENGINEER doctor today who recommended she come to the emergency department for hydration. She is tachycardic feels dry and has been vomiting. She does have some pain under her ribs secondary to all the retching. Review of Systems Constitutional: denies: Fever, Chills, Myalgias Eyes: denies: Decreased vision Ears: denies: Ear pain Nose: denies: Rhinorrhea / runny nose, Congestion Throat: denies: Sore throat Cardiac: denies: Chest pain / pressure, Palpitations Respiratory: denies: Dyspnea, Cough GI: reports: Abdominal Pain, Nausea, Vomiting : denies: Dysuria, Frequency Skin: denies: Rash, Lesions Musculoskeletal: denies: Neck pain, Back pain, Extremity pain Neurologic: denies: Generalized weakness, Focal weakness, Numbness PD PAST MEDICAL HISTORY - Past Medical History Cardiovascular: None Respiratory: None Neuro: None Endocrine/Autoimmune: None GI: None DIRECTOR OF LITIGATION: None : None HEENT: None Psych: None Musculoskeletal: None Derm: None - Past Surgical History Past Surgical History: No - Present Medications Home Medications: Ambulatory Orders Medication Instructions Recorded Confirmed Ondansetron Odt [Zofran] 4 mg TL Q6H PRN #30 tablet 04/25/20 No122/Iron/Folic Acid 1 tab PO DAILY 04/25/20 04/25/20 [ Multi Tablet] Doxylamine/Pyridoxine HCl 1 each PO Q6H #40 tablet. 05/05/20 [Carlton Mera 10-10 mg Tablet] Ondansetron Odt [Zofran] 4 mg TL Q6H PRN #30 tablet 05/05/20 Promethazine Supp [Phenergan Supp] 25 mg RI Q6H PRN #30 supp 05/11/20 Potassium Chloride 20 meq PO BID #200 ml 05/24/20 - Allergies Allergies/Adverse Reactions: Allergies Allergy/AdvReac Type Severity Reaction Status Date / Time Penicillins Allergy Unknown Verified 05/24/20 15:52 - Social History Does the pt smoke?: No Smoking Status: Never smoker Does the pt drink ETOH?: No Does the pt have substance abuse?: No PD ED PE NORMAL - Vitals Vital signs reviewed: Yes (Tachycardia) - General General: Alert and oriented X 3, No acute distress, Well developed/nourished - HEENT HEENT: Atraumatic, PERRL, EOMI - Neck Neck: Supple, no meningeal sign, No bony TTP - Cardiac Cardiac: No murmur, Other (tachy) - Respiratory Respiratory: No respiratory distress, Clear bilaterally - Abdomen Abdomen: Soft, Other (mild upper abdomen tenderness consistent with muscle strain ) - Back Back: No CVA TTP, No spinal TTP - Derm Derm: Normal color, Warm and dry, No rash - Extremities Extremities: No deformity, No tenderness to palpate, Normal ROM s pain, No edema, No calf tenderness / cord - Neuro Neuro: Alert and oriented X 3, paradi tender 2-12 intact, No motor deficit, No sensory deficit, Normal speech Eye Opening: Spontaneous Motor: Obeys Commands Verbal: Oriented GCS Score: 15 - Psych Psych: Normal mood, Normal affect Results - Vitals Vitals: Vital Signs - 24 hr 05/24/20 05/24/20 05/24/20 15:49 17:34 19:00 Temperature 36.3 C L 36.8 C Heart Rate 120 H 105 H 114 H Respiratory 18 18 20 Rate Blood Pressure 120/71 115/77 124/70 O2 Saturation 100 100 100 Oxygen O2 Source Room air - Labs Labs: Laboratory Tests 05/24/20 05/24/20 05/24/20 17:06 17:06 18:49 WBC 7.2 RBC 4.55 Hgb 14.1 Hct 38.3 MCV 84.2 MCH 31.0 MCHC 36.8 H RDW 11.8 L Plt Count 250 MPV 10.5 Neut # (Auto) 5.9 Lymph # (Auto) 0.8 L [place] # (Auto) 0.5 Eos # (Auto) 0.0 Baso # (Auto) 0.0 Absolute Nucleated RBC 0.00 Nucleated RBC % 0.0 Sodium 135 Potassium 2.8 L Chloride 95 L Carbon Dioxide 24 Anion Gap 16.0 H BUN 9 Creatinine 0.5 Estimated GFR (MDRD) 156 Glucose 112 H Calcium 9.8 Total Bilirubin 1.4 H AST 83 H ALT 156 H Alkaline Phosphatase 55 Total Protein 7.9 Albumin 4.6 Globulin 3.3 Albumin/Globulin Ratio 1.4 Lipase 39 Urine Color DARK YELLOW Urine Clarity CLEAR Urine pH 6.5 Ur Specific [place] >=1.030 H Urine Protein 100 H Urine Glucose (UA) NEGATIVE Urine Ketones >=80 H Urine Occult Blood TRACE-INTA Urine Nitrite NEGATIVE Urine Bilirubin SMALL H Urine Urobilinogen 1 (NORMAL) Ur Leukocyte Esterase NEGATIVE Urine RBC 0-5 Urine WBC 0-3 Ur Squamous Epith Cells FEW Squamous Urine Bacteria Rare Urine Mucus Marked Strands Ur Microscopic Review INDICATED Urine Culture Comments NOT INDICATED Procedures - IVC sono (time) 1742 Bedside IVC sono: IVC measures (cm) (0.71), IVC collapsed c insp (cm) (complete), Significant dehydration (est 2-3 liter deficit) PD MEDICAL DECISION MAKING - ED course Complexity details: reviewed old records, reviewed results, re-evaluated patient, considered differential, d/w patient, d/w family ED course: 19-year-old female with hyperemesis gravidarum is found to be 2 to 3 L dehydrated and IV saline is given. She has hypokalemia and oral potassium is administered as well. She is given Zofran intravenously for nausea and this does help. Departure - Departure Clinical Impression: Hyperemesis gravidarum Condition: Stable Instructions: ED Preg Morning Sickness Follow-Up: JAMAL BAÑUELOS [Primary Care Provider] - Prescriptions: Potassium Chloride 20 meq PO BID #200 ml Comments: Increase your dose of Zofran to 8 mg every 6 hours as needed.
[2020-05-24 17:49] LABS: BASOPHILS % (AUTO) 0.3 %; EOSINOPHILS % (AUTO) 0.1 %; HGB - HEMOGLOBIN 14.1 g/dL (12.0-16.0); LYMPHOCYTES # (AUTO) 0.8 10^3/uL (1.5-3.5); LYMPHOCYTES % (AUTO) 10.5 %; MEAN CORPUSCULAR HGB CONC 36.8 g/dL (32.0-36.0); MEAN CORPUSCULAR VOLUME 84.2 fL (81.0-99.0); MEAN PLATELET VOLUME 10.5 fL (7.9-10.8); MONOCYTES # (AUTO) 0.5 10^3/uL (0.0-1.0); MONOCYTES % (AUTO) 6.4 %; NEUTROPHILS # (AUTO) 5.9 10^3/uL (1.5-6.6); NEUTROPHILS % (AUTO) 82.4 %; PLT - PLATELET COUNT 250 10^3/uL (130-450); RED BLOOD COUNT 4.55 10^6/uL (4.20-5.40); RED CELL DISTRIBUTION WIDTH 11.8 % (12.0-15.0); WHITE BLOOD COUNT 7.2 x10^3/uL (4.8-10.8)
[2020-05-24 17:59] LABS: ALBUMIN 4.6 g/dL (3.2-5.5); ALBUMIN/GLOBULIN RATIO 1.4 (1.0-2.2); BILIRUBIN,TOTAL 1.4 mg/dL (0.2-1.0); CALCIUM 9.8 mg/dL (8.5-10.3); CREATININE 0.5 mg/dL (0.4-1.0); TOTAL PROTEIN 7.9 g/dL (6.7-8.2)
[2020-05-24] MEDS ORDERED: POTASSIUM CHLORIDE 20 MEQ TABLET PO STA (18:55)
[2020-05-24 18:57] LABS: GLUCOSE, URINE (UA) NEGATIVE (NEGATIVE); KETONES,URINE (UA) >=80 mg/dL (NEGATIVE); LEUKOCYTE ESTERASE, URINE NEGATIVE (NEGATIVE); NITRITE,URINE NEGATIVE (NEGATIVE); OCCULT BLOOD,URINE TRACE-INTA (NEGATIVE); PH,URINE 6.5 PH (5.0-7.5); PROTEIN,URINE 100 mg/dL (NEGATIVE); UROBILINOGEN,URINE 1 (NORMAL) E.U./dL (NORMAL)
[2020-05-24 18:59] LABS: CLARITY,URINE CLEAR (CLEAR)
[2020-05-24 19:03] LABS: ICTOTEST,URINE POSITIVE
[2020-05-24 19:04] LABS: BILIRUBIN,URINE SMALL (NEGATIVE)
[2020-05-24 19:05] LABS: BACTERIA,URINE Rare /HPF (None Seen); MUCUS,URINE Marked Strands; RBC,URINE 0-5 /HPF (0-5); SQUAMOUS EPITHELIAL CELL,UR FEW Squamous (<= Few)
[2020-05-24 20:25] VITALS: BP 111/64
== END 2020-05-24 20:20 | disposition home or self-care (01) ==
LOC: ED 15:46
DX: O21.1 Hyperemesis gravidarum with metabolic disturbance (principal); Z3A.11 11 weeks gestation of pregnancy
CPT/HCPCS: 36415; 80053; 81001; 83690; 85025; 96361; 96374; 96376; 99283; 99284; A9270; 81003; 87086

== ENCOUNTER 2020-11-05 08:00 | Outpatient (CLI) | payer OTHER ==
[2020-11-05 21:26] LABS: CANDIDA KRUSEI DNA NEGATIVE (NEGATIVE); TRICHOMONAS VAGINALIS DNA NEGATIVE (NEGATIVE)
[2020-11-05 21:27] LABS: CANDIDA GROUP DNA POSITIVE (NEGATIVE)
== END 2020-11-05 23:59 | disposition home or self-care (01) ==
LOC: LAB.R 08:00
PROVIDERS: ATTEND Advanced Practice Midwife
DX: N89.8 Other specified noninflammatory disorders of vagina (principal)
CPT/HCPCS: 87661; 87801

== ENCOUNTER 2020-11-17 16:03 | Inpatient (IN) | payer OTHER ==
[2020-11-17] MEDS ORDERED: SODIUM CHLORIDE FLUSH 0.9% 10 ML SYRINGE IVP PRN ×2 (16:36→17:42)
[2020-11-17] MEDS ORDERED: LACTATED RINGERS 500 ML IV ONE (16:39)
[2020-11-17] MEDS ORDERED: BETAMETHASONE 30 MG/5 ML VIAL IM ONE (17:06)
[2020-11-17 17:22] LABS: BILIRUBIN,URINE NEGATIVE (NEGATIVE); GLUCOSE, URINE (UA) NEGATIVE (NEGATIVE); KETONES,URINE (UA) NEGATIVE (NEGATIVE); LEUKOCYTE ESTERASE, URINE NEGATIVE (NEGATIVE); NITRITE,URINE NEGATIVE (NEGATIVE); OCCULT BLOOD,URINE NEGATIVE (NEGATIVE); PH,URINE 6.5 PH (5.0-7.5); PROTEIN,URINE NEGATIVE (NEGATIVE); UROBILINOGEN,URINE 0.2 (NORMAL) E.U./dL (NORMAL)
--- NOTE | 2020-11-17 17:24 | HISTORY & PHYSICAL EXAMINATION ---
Admit History - Visit Reason Visit Reason: Contractions - : 1 Parity: 0 Premature: 0 Ectopic: 0 : 0 Care: positive: JENNIFER-Paulette, Other (transfer from [facility] to [facility] at 32.2wks) Risk/History: positive: None Complications This : positive: None Smoking Status: Never smoker - Mother's Labs Mother's Blood Type: positive: O Mother's RH: positive: Positive GBS: positive: Other (Unknown) Rubella Status: positive: Immune - Other Maternal History Other Maternal History: -20yo at 35.4 wks gestation who presents to Labor and Delivery for complaints of contractions They started after intercourse at 1300, and she notified CNM just before 1400, at which time they were mild and [id number]. Instructed to time them and call back in 30 mins if increased in frequency or intensity. Pt called again at 1515 to report ctx that were 3mins apart and 6/10 in intensity. Instructed to present to L&D. Presented at 1625 and put on monitor -Reports movement -Denies ctx/VB/LOF - care with [facility] which has been adequate, after transfer of care from [facility] at 32.2 wks - Complications *None -Dating Criteria *Initial U/S: 11.2wks (12/25/2020) not c/w LMP by 7 days, LMP dating kept; FINAL TIN 12/18/2020 -OB Hx *G1:current -Medications * vitamin-daily -Allergies *NKDA -Medical History *Non contributory -Surgical History *None -Family History *MGM- cervical cancer *Mother with strove/CVA -Social History *Non contributory - Labs, Immunizations, and Findings *Initial U/S: 11.2wks (12/25/2020) not c/w LMP by 7 days, LMP dating kept; FINAL TIN 12/18/2020 O pos/Rubella immune VZV-immune Gentic testing: 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 3VC.efw 53%. Glucola 100 Flu: declined TDAP 09/25/2020 GBS & GC/CT at 36 weeks HSV: denies self and partner Breast pump Rx 09/25/2020 MOD: . Spouse: Yonis. Baby GIRL- Kris ([email or web address]-THIERNO). Desires NCB. pp contraception: IUD- Mirena. Discussed need for new referral PAP: 01/11/2020-nilm -SVE /-2/mod/mid/intact -Vertex by digital exam -FHTs per flowsheet -Assessment *20yo at 35.4 wks gestation who presents to Labor and Delivery for complaints of contractions *Active labor * Heart Tones- Category I -Plan *Admit L&D *Transfer of care to MD *Peds notified *Betamethasone x1 now *GBS collected- Ancef 2g q8h to start now *Monitoring- Continuous *Comfort measures available- position changes, whirlpool tub, fentanyl, and epidural per maternal preference *Diet/Activity- per maternal preference *Anticipate Meds/Allgy - Home Medications Home Medications: Ambulatory Orders Medication Instructions Recorded Confirmed Ondansetron Odt [Zofran] 4 mg TL Q6H PRN #30 tablet 04/25/20 No122/Iron/Folic Acid 1 tab PO DAILY 04/25/20 04/25/20 [ Multi Tablet] Doxylamine/Pyridoxine HCl 1 each PO Q6H #40 tablet. 05/05/20 [Carlton Mera 10-10 mg Tablet] Ondansetron Odt [Zofran] 4 mg TL Q6H PRN #30 tablet 05/05/20 Promethazine Supp [Phenergan Supp] 25 mg NM Q6H PRN #30 supp 05/11/20 Potassium Chloride 20 meq PO BID #200 ml 05/24/20 - Allergies Allergies/Adverse Reactions: Allergies Allergy/AdvReac Type Severity Reaction Status Date / Time Penicillins Allergy Unknown Verified 05/24/20 15:52 Review of Systems - All Other Systems All Other Systems: reports: Reviewed and negative Physical - Abdominal Exam Contraction Frequency (min/apart): 2-4 Contraction Intensity: positive: Mild to moderate Uterine Resting Tone: positive: Soft - Monitoring Heart Rate Baseline: 145 Strip Review: positive: Category I (moderate variability, acels, no decels) - Presentation Presentation: positive: Vertex - Vaginal Exam Membranes: positive: Membranes intact Dilation (in cm): 5 Effacement (%): 80 Station: positive: -2 Cervical Position: positive: Midposition Plan for Labor - Plan For Labor I expect patient to be DC'd or transferred within 96 hours.: Yes
[2020-11-17 17:28] LABS: CLARITY,URINE HAZY (CLEAR)
[2020-11-17] MEDS: LACTATED RINGERS 1,000 ML IV SCH ×2 (17:38→20:00)
[2020-11-17] MEDS: ceFAZolin 2 GM/50 ML 2 GM/50 ML BAG IV SCH (17:38)
[2020-11-17 17:41] LABS: BACTERIA,URINE Rare /HPF (None Seen); RBC,URINE 0-5 /HPF (0-5); SQUAMOUS EPITHELIAL CELL,UR FEW Squamous (<= Few)
[2020-11-17] MEDS ORDERED: fentaNYL 100 MCG/2 ML VIAL IVP PRN (17:42)
[2020-11-17] MEDS ORDERED: ONDANSETRON 4 MG/2 ML VIAL IVP PRN (17:42)
[2020-11-17] MEDS ORDERED: LIDOCAINE-MPF 1% 30 ML VIAL ID PRN (17:42)
[2020-11-17] MEDS ORDERED: METHYLERGONOVINE 0.2 MG/ML VIAL IM PRN (17:42)
[2020-11-17] MEDS ORDERED: OXYTOCIN 10 UNIT/ML VIAL IM PRN (17:42)
[2020-11-17] MEDS ORDERED: miSOPROStoL 200 MCG TABLET BC PRN (17:42)
[2020-11-17] MEDS ORDERED: OXYTOCIN/SODIUM CHLORIDE 500 ML IV PRN (17:42)
[2020-11-17] MEDS ORDERED: CARBOPROST TROMETHAMINE 250 MCG/ML AMP IM PRN (17:42)
[2020-11-17] MEDS ORDERED: TRANEXAMIC ACID 1,000 MG in SODIUM CHLORIDE 0.9% 100ML 100 ML IV PRN (17:42)
[2020-11-17 17:50] LABS: BASOPHILS % (AUTO) 0.3 %; EOSINOPHILS % (AUTO) 0.3 %; HGB - HEMOGLOBIN 10.9 g/dL (12.0-16.0); LYMPHOCYTES % (AUTO) 20.8 %; MEAN CORPUSCULAR HEMOGLOBIN 28.6 pg (27.0-31.0); MEAN CORPUSCULAR HGB CONC 32.4 g/dL (32.0-36.0); MEAN CORPUSCULAR VOLUME 88.2 fL (81.0-99.0); MONOCYTES # (AUTO) 0.7 10^3/uL (0.0-1.0); MONOCYTES % (AUTO) 7.3 %; NEUTROPHILS # (AUTO) 6.8 10^3/uL (1.5-6.6); NEUTROPHILS % (AUTO) 70.3 %; PLT - PLATELET COUNT 209 10^3/uL (130-450); RED BLOOD COUNT 3.81 10^6/uL (4.20-5.40); RED CELL DISTRIBUTION WIDTH 13.8 % (12.0-15.0); WHITE BLOOD COUNT 9.7 x10^3/uL (4.8-10.8)
[2020-11-17] MEDS: ACETAMINOPHEN 325 MG TABLET PO SCH (19:01)
--- NOTE | 2020-11-17 21:11 | PROVIDER PROGRESS NOTE ---
Subjective - Prog Note Date Prog Note Date: 11/17/20 Prog Note Time: 19:35 - Subjective Subjective: Patient appears comfortable. Reports back pain. No obvious discomfort with contractions. No LOF or VB. Has had one dose of cefazolin. FLuid bolus of 500 cc Objective - Vital Signs/Intake & Output Vital Signs: Vital Signs x48h Temp Pulse Resp BP Pulse Ox 11/17/20 18:00 98.6 F 11/17/20 16:18 98.6 F 112 H 18 112/79 100 Intake & Output: Intake & Output 11/14/20 11/15/20 11/16/20 11/17/20 23:59 23:59 23:59 23:59 Intake Total 905 Balance 905 - Objective General Appearance: positive: No acute distress Respiratory: positive: No respiratory distress Cardiovascular: positive: Other (RR) Abdomen: positive: Other (gravid, S&NT/ND) Skin: positive: Color nml, Warm Extremities: positive: Non-tender, No pedal edema Neurologic/Psychiatric: positive: Oriented x3 Comments/Other: SVE 2-3/60/high/posterior/mid EFM 140 mod kaya 15x15 accels no decels TOCO: Q3-4 min, mild - Lab Results Fish Bones: 11/17/20 17:00 Other Labs: Lab Results x24hrs 11/17/20 11/17/20 11/17/20 Range/Units 17:00 17:00 17:00 WBC 9.7 (4.8-10.8) x10^3/uL RBC 3.81 L (4.20-5.40) 10^6/uL Hgb 10.9 L (12.0-16.0) g/dL Hct 33.6 L (37.0-47.0) % MCV 88.2 (81.0-99.0) fL MCH 28.6 (27.0-31.0) pg MCHC 32.4 (32.0-36.0) g/dL RDW 13.8 (12.0-15.0) % Plt Count 209 (130-450) 10^3/uL MPV 11.0 H (7.9-10.8) fL Neut # (Auto) 6.8 H (1.5-6.6) 10^3/uL Lymph # (Auto) 2.0 (1.5-3.5) 10^3/uL [place] # (Auto) 0.7 (0.0-1.0) 10^3/uL Eos # (Auto) 0.0 (0.0-0.7) 10^3/uL Baso # (Auto) 0.0 (0.0-0.1) 10^3/uL Absolute Nucleated RBC 0.00 x10^3/uL Nucleated RBC % 0.0 /100WBC Urine Color YELLOW Urine Clarity HAZY (CLEAR) Urine pH 6.5 (5.0-7.5) PH Ur Specific [place] <=1.005 (1.002-1.030) Urine Protein NEGATIVE (NEGATIVE) mg/dL Urine Glucose (UA) NEGATIVE (NEGATIVE) mg/dL Urine Ketones NEGATIVE (NEGATIVE) mg/dL Urine Occult Blood NEGATIVE (NEGATIVE) Urine Nitrite NEGATIVE (NEGATIVE) Urine Bilirubin NEGATIVE (NEGATIVE) Urine Urobilinogen 0.2 (NORMAL) (NORMAL) E.U./dL Ur Leukocyte Esterase NEGATIVE (NEGATIVE) Urine RBC 0-5 (0-5) /HPF Urine WBC 0-3 (0-5) /HPF Ur Squamous Epith Cells FEW Squamous (<= Few) Urine Bacteria Rare (None Seen) /HPF Urine Culture Comments NOT INDICATED Blood Type O POSITIVE Antibody Screen NEGATIVE Assessment/Plan - Problem List (1) labor in third trimester Impression: Patient appears more comfortable Still adolfo regularly but cervical exam has reversed and there is no longer applicaiton of the head to the cervix. Cat I tracing GCCT and vaginitis panel collected S/p [id number] Decreased concern for imminent delivery Will give additional 500 cc bolus of LR given frequency of contractions Will check again in 2 hours to assess for stability
[2020-11-17 21:29] LABS: CANDIDA GROUP DNA NEGATIVE (NEGATIVE); CANDIDA KRUSEI DNA NEGATIVE (NEGATIVE); TRICHOMONAS VAGINALIS DNA NEGATIVE (NEGATIVE)
--- NOTE | 2020-11-17 21:31 | PROVIDER PROGRESS NOTE ---
Subjective - Prog Note Date Prog Note Date: 11/17/20 Prog Note Time: 21:29 - Subjective Subjective: Patient still appears to be comfortable. Up and moving throughout the room. Denies increasing intensity of contractions. No LOF or VB. Objective - Vital Signs/Intake & Output Reviewed Vital Signs: Yes Vital Signs: Vital Signs x48h Temp Pulse Resp BP Pulse Ox 11/17/20 18:00 98.6 F 11/17/20 16:18 98.6 F 112 H 18 112/79 100 Intake & Output: Intake & Output 11/14/20 11/15/20 11/16/20 11/17/20 23:59 23:59 23:59 23:59 Intake Total 905 Balance 905 - Objective General Appearance: positive: No acute distress Respiratory: positive: No respiratory distress Cardiovascular: positive: Other (RR) Abdomen: positive: Other (Gravid, S&NT) Skin: positive: Color nml Extremities: positive: Non-tender, No pedal edema Neurologic/Psychiatric: positive: Oriented x3 - Lab Results Fish Bones: 11/17/20 17:00 Other Labs: Lab Results x24hrs 11/17/20 11/17/20 11/17/20 Range/Units 17:00 17:00 17:00 WBC 9.7 (4.8-10.8) x10^3/uL RBC 3.81 L (4.20-5.40) 10^6/uL Hgb 10.9 L (12.0-16.0) g/dL Hct 33.6 L (37.0-47.0) % MCV 88.2 (81.0-99.0) fL MCH 28.6 (27.0-31.0) pg MCHC 32.4 (32.0-36.0) g/dL RDW 13.8 (12.0-15.0) % Plt Count 209 (130-450) 10^3/uL MPV 11.0 H (7.9-10.8) fL Neut # (Auto) 6.8 H (1.5-6.6) 10^3/uL Lymph # (Auto) 2.0 (1.5-3.5) 10^3/uL [place] # (Auto) 0.7 (0.0-1.0) 10^3/uL Eos # (Auto) 0.0 (0.0-0.7) 10^3/uL Baso # (Auto) 0.0 (0.0-0.1) 10^3/uL Absolute Nucleated RBC 0.00 x10^3/uL Nucleated RBC % 0.0 /100WBC Urine Color YELLOW Urine Clarity HAZY (CLEAR) Urine pH 6.5 (5.0-7.5) PH Ur Specific [place] <=1.005 (1.002-1.030) Urine Protein NEGATIVE (NEGATIVE) mg/dL Urine Glucose (UA) NEGATIVE (NEGATIVE) mg/dL Urine Ketones NEGATIVE (NEGATIVE) mg/dL Urine Occult Blood NEGATIVE (NEGATIVE) Urine Nitrite NEGATIVE (NEGATIVE) Urine Bilirubin NEGATIVE (NEGATIVE) Urine Urobilinogen 0.2 (NORMAL) (NORMAL) E.U./dL Ur Leukocyte Esterase NEGATIVE (NEGATIVE) Urine RBC 0-5 (0-5) /HPF Urine WBC 0-3 (0-5) /HPF Ur Squamous Epith Cells FEW Squamous (<= Few) Urine Bacteria Rare (None Seen) /HPF Urine Culture Comments NOT INDICATED Blood Type O POSITIVE Antibody Screen NEGATIVE - Other Results/Comments Other Results/Comments: /high/posterior/med; essentially unchanged form prior exam EFM 135 mod kaya 15x15 accels no decels TOCO: Q4-5 min, mild Assessment/Plan - Problem List (1) labor in third trimester Impression: Unchanged SVE over 2 hours Contractions appears to be spacing Cont to monitor overnight Will avoid SVE unless change in clinical appearance/symptoms
[2020-11-17] MEDS ORDERED: ZOLPIDEM 5 MG TABLET PO PRN (23:04)
[2020-11-17 23:06] LABS: TRICHOMONAS VAGINALIS DNA NEGATIVE (NEGATIVE)
[2020-11-17] MEDS ORDERED: diphenhydrAMINE 25 MG CAPSULE PO PRN (23:06)
[2020-11-18] MEDS ORDERED: SODIUM CHLORIDE FLUSH 0.9% 10 ML SYRINGE IVP SCH (01:00)
[2020-11-18] MEDS: ceFAZolin 2 GM/50 ML 2 GM/50 ML BAG IV SCH ×2 (01:46→10:13)
[2020-11-18] MEDS: ACETAMINOPHEN 325 MG TABLET PO SCH ×2 (02:19→08:42)
[2020-11-18 07:25] VITALS: BP 110/67
[2020-11-18] MEDS: LACTATED RINGERS 1,000 ML IV SCH (08:01)
[2020-11-18 08:23] LABS: ALBUMIN 3.4 g/dL (3.2-5.5); ALBUMIN/GLOBULIN RATIO 0.8 (1.0-2.2); BILIRUBIN,TOTAL 1.2 mg/dL (0.2-1.0); CALCIUM 9.2 mg/dL (8.5-10.3); CREATININE 0.5 mg/dL (0.4-1.0); TOTAL PROTEIN 7.5 g/dL (6.7-8.2)
--- NOTE | 2020-11-18 10:59 | PROVIDER PROGRESS NOTE ---
Subjective - Prog Note Date Prog Note Date: 11/18/20 Prog Note Time: 10:56 - Subjective Subjective: No changes overnight. Contractions have slowed. Reported rectal pressure this am but cervical exam is even more reassuring. No CP/SOB/dizziness. Objective - Vital Signs/Intake & Output Reviewed Vital Signs: Yes Vital Signs: Vital Signs x48h Temp Pulse Resp BP Pulse Ox 11/18/20 07:15 97.9 F 121 H 18 110/67 100 Intake & Output: Intake & Output 11/15/20 11/16/20 11/17/20 11/18/20 23:59 23:59 23:59 23:59 Intake Total 905 2254.5 Output Total 350 750 Balance 555 1504.5 - Objective General Appearance: positive: No acute distress Neck: positive: Nml inspection Respiratory: positive: No respiratory distress, Breath sounds nml Cardiovascular: positive: Other (tachycardic, reg rate) Peripheral Pulses: 2+ Radial (R), 2+ Radial (L) Abdomen: positive: Other (gravid, S&NT) Skin: positive: Color nml Extremities: positive: Non-tender, Nml appearance, No pedal edema Neurologic/Psychiatric: positive: Oriented x3 Comments/Other: SVE: 2.5/50/high/posterior/med - Lab Results Fish Bones: 11/17/20 17:00 11/18/20 08:04 Other Labs: Lab Results x24hrs 11/18/20 11/18/20 11/17/20 Range/Units 08:04 08:04 19:35 WBC (4.8-10.8) x10^3/uL RBC (4.20-5.40) 10^6/uL Hgb (12.0-16.0) g/dL Hct (37.0-47.0) % MCV (81.0-99.0) fL MCH (27.0-31.0) pg MCHC (32.0-36.0) g/dL RDW (12.0-15.0) % Plt Count (130-450) 10^3/uL MPV (7.9-10.8) fL Neut # (Auto) (1.5-6.6) 10^3/uL Lymph # (Auto) (1.5-3.5) 10^3/uL [place] # (Auto) (0.0-1.0) 10^3/uL Eos # (Auto) (0.0-0.7) 10^3/uL Baso # (Auto) (0.0-0.1) 10^3/uL Absolute Nucleated RBC x10^3/uL Nucleated RBC % /100WBC Sodium 134 L (135-145) mmol/L Potassium 3.9 (3.5-5.0) mmol/L Chloride 101 (101-111) mmol/L Carbon Dioxide 16 L (21-32) mmol/L Anion Gap 17.0 H (6-13) BUN 7 (6-20) mg/dL Creatinine 0.5 (0.4-1.0) mg/dL Estimated GFR (MDRD) 154 (>89) Glucose 100 (70-100) mg/dL Calcium 9.2 (8.5-10.3) mg/dL Total Bilirubin 1.2 H (0.2-1.0) mg/dL AST 17 (10-42) IU/L ALT 11 (10-60) IU/L Alkaline Phosphatase 129 H (42-121) IU/L Total Protein 7.5 (6.7-8.2) g/dL Albumin 3.4 (3.2-5.5) g/dL Globulin 4.1 (2.1-4.2) g/dL Albumin/Globulin Ratio 0.8 L (1.0-2.2) TSH 1.64 (0.34-5.60) uIU/mL Urine Color Urine Clarity (CLEAR) Urine pH (5.0-7.5) PH Ur Specific [place] (1.002-1.030) Urine Protein (NEGATIVE) mg/dL Urine Glucose (UA) (NEGATIVE) mg/dL Urine Ketones (NEGATIVE) mg/dL Urine Occult Blood (NEGATIVE) Urine Nitrite (NEGATIVE) Urine Bilirubin (NEGATIVE) Urine Urobilinogen (NORMAL) E.U./dL Ur Leukocyte Esterase (NEGATIVE) Urine RBC (0-5) /HPF Urine WBC (0-5) /HPF Ur Squamous Epith Cells (<= Few) Urine Bacteria (None Seen) /HPF Urine Culture Comments C. glabrata (PCR) NEGATIVE (NEGATIVE) C. krusei (PCR) NEGATIVE (NEGATIVE) Rachelle species DNA NEGATIVE (NEGATIVE) Chlam trachomat DNA PCR (NEGATIVE) N.gonorrhoeae DNA (PCR) (NEGATIVE) T. vaginalis (PCR) NEGATIVE (NEGATIVE) Bact Vaginosis (PCR) NEGATIVE (NEGATIVE) Blood Type Antibody Screen 11/17/20 11/17/20 11/17/20 Range/Units 19:35 17:00 17:00 WBC 9.7 (4.8-10.8) x10^3/uL RBC 3.81 L (4.20-5.40) 10^6/uL Hgb 10.9 L (12.0-16.0) g/dL Hct 33.6 L (37.0-47.0) % MCV 88.2 (81.0-99.0) fL MCH 28.6 (27.0-31.0) pg MCHC 32.4 (32.0-36.0) g/dL RDW 13.8 (12.0-15.0) % Plt Count 209 (130-450) 10^3/uL MPV 11.0 H (7.9-10.8) fL Neut # (Auto) 6.8 H (1.5-6.6) 10^3/uL Lymph # (Auto) 2.0 (1.5-3.5) 10^3/uL [place] # (Auto) 0.7 (0.0-1.0) 10^3/uL Eos # (Auto) 0.0 (0.0-0.7) 10^3/uL Baso # (Auto) 0.0 (0.0-0.1) 10^3/uL Absolute Nucleated RBC 0.00 x10^3/uL Nucleated RBC % 0.0 /100WBC Sodium (135-145) mmol/L Potassium (3.5-5.0) mmol/L Chloride (101-111) mmol/L Carbon Dioxide (21-32) mmol/L Anion Gap (6-13) BUN (6-20) mg/dL Creatinine (0.4-1.0) mg/dL Estimated GFR (MDRD) (>89) Glucose (70-100) mg/dL Calcium (8.5-10.3) mg/dL Total Bilirubin (0.2-1.0) mg/dL AST (10-42) IU/L ALT (10-60) IU/L Alkaline Phosphatase (42-121) IU/L Total Protein (6.7-8.2) g/dL Albumin (3.2-5.5) g/dL Globulin (2.1-4.2) g/dL Albumin/Globulin Ratio (1.0-2.2) TSH (0.34-5.60) uIU/mL Urine Color Urine Clarity (CLEAR) Urine pH (5.0-7.5) PH Ur Specific [place] (1.002-1.030) Urine Protein (NEGATIVE) mg/dL Urine Glucose (UA) (NEGATIVE) mg/dL Urine Ketones (NEGATIVE) mg/dL Urine Occult Blood (NEGATIVE) Urine Nitrite (NEGATIVE) Urine Bilirubin (NEGATIVE) Urine Urobilinogen (NORMAL) E.U./dL Ur Leukocyte Esterase (NEGATIVE) Urine RBC (0-5) /HPF Urine WBC (0-5) /HPF Ur Squamous Epith Cells (<= Few) Urine Bacteria (None Seen) /HPF Urine Culture Comments C. glabrata (PCR) (NEGATIVE) C. krusei (PCR) (NEGATIVE) Rachelle species DNA (NEGATIVE) Chlam trachomat DNA PCR NEGATIVE (NEGATIVE) N.gonorrhoeae DNA (PCR) NEGATIVE (NEGATIVE) T. vaginalis (PCR) NEGATIVE (NEGATIVE) Bact Vaginosis (PCR) (NEGATIVE) Blood Type O POSITIVE Antibody Screen NEGATIVE 11/17/20 Range/Units 17:00 WBC (4.8-10.8) x10^3/uL RBC (4.20-5.40) 10^6/uL Hgb (12.0-16.0) g/dL Hct (37.0-47.0) % MCV (81.0-99.0) fL MCH (27.0-31.0) pg MCHC (32.0-36.0) g/dL RDW (12.0-15.0) % Plt Count (130-450) 10^3/uL MPV (7.9-10.8) fL Neut # (Auto) (1.5-6.6) 10^3/uL Lymph # (Auto) (1.5-3.5) 10^3/uL [place] # (Auto) (0.0-1.0) 10^3/uL Eos # (Auto) (0.0-0.7) 10^3/uL Baso # (Auto) (0.0-0.1) 10^3/uL Absolute Nucleated RBC x10^3/uL Nucleated RBC % /100WBC Sodium (135-145) mmol/L Potassium (3.5-5.0) mmol/L Chloride (101-111) mmol/L Carbon Dioxide (21-32) mmol/L Anion Gap (6-13) BUN (6-20) mg/dL Creatinine (0.4-1.0) mg/dL Estimated GFR (MDRD) (>89) Glucose (70-100) mg/dL Calcium (8.5-10.3) mg/dL Total Bilirubin (0.2-1.0) mg/dL AST (10-42) IU/L ALT (10-60) IU/L Alkaline Phosphatase (42-121) IU/L Total Protein (6.7-8.2) g/dL Albumin (3.2-5.5) g/dL Globulin (2.1-4.2) g/dL Albumin/Globulin Ratio (1.0-2.2) TSH (0.34-5.60) uIU/mL Urine Color YELLOW Urine Clarity HAZY (CLEAR) Urine pH 6.5 (5.0-7.5) PH Ur Specific [place] <=1.005 (1.002-1.030) Urine Protein NEGATIVE (NEGATIVE) mg/dL Urine Glucose (UA) NEGATIVE (NEGATIVE) mg/dL Urine Ketones NEGATIVE (NEGATIVE) mg/dL Urine Occult Blood NEGATIVE (NEGATIVE) Urine Nitrite NEGATIVE (NEGATIVE) Urine Bilirubin NEGATIVE (NEGATIVE) Urine Urobilinogen 0.2 (NORMAL) (NORMAL) E.U./dL Ur Leukocyte Esterase NEGATIVE (NEGATIVE) Urine RBC 0-5 (0-5) /HPF Urine WBC 0-3 (0-5) /HPF Ur Squamous Epith Cells FEW Squamous (<= Few) Urine Bacteria Rare (None Seen) /HPF Urine Culture Comments NOT INDICATED C. glabrata (PCR) (NEGATIVE) C. krusei (PCR) (NEGATIVE) Rachelle species DNA (NEGATIVE) Chlam trachomat DNA PCR (NEGATIVE) N.gonorrhoeae DNA (PCR) (NEGATIVE) T. vaginalis (PCR) (NEGATIVE) Bact Vaginosis (PCR) (NEGATIVE) Blood Type Antibody Screen - Other Results/Comments Other Results/Comments: ekg SINUS TACH baseline rate TSH 1.64 Assessment/Plan - Problem List (1) labor in third trimester Impression: Labor appears to have subsided No change in cervical exam after 3 consecutive exams Tachycardic with no major changes in lab or EKG Evaluated by Dr. Nixon form ED without concerns on exam. Discharged to home with warning signs reviewed
--- NOTE | 2020-11-18 11:24 | Discharge Plan ---
Discharge Plan Problem Reviewed?: Yes Disposition: Home, Self Care Condition: Good Diet: Regular Activity Restrictions: Additional Comments (Pelvic rest for 1.5 weeks) Shower Restrictions: No Driving Restrictions: No Health Concerns: Call for: Shortness of breath, chest pain, dizziness or lightheadedness, pain and swelling in one (as opposed toboth) legs Vaginal bleeding or gushes for fluid form the vagina Worsening rectal or vaginal pressure Increased frequency or intensity of cotnractions Baby is not moving Plan of Treatment: FU in clinic with the week No Smoking: If you smoke, Please STOP! Call for help. Follow-up with: JAMAL BAÑUELOS [Primary Care Provider] -
--- NOTE | 2020-11-18 11:33 | DISCHARGE SUMMARY ---
"Discharge Summary Admit Date: 11/17/20 Discharge Date: 11/18/20 Discharging Provider: Tanner Condition at Discharge: Good Discharge Disposition: 01 Home, Self Care - DIAGNOSES Admission Diagnoses: labor at 35+4 wga Advanced cervical dilation Discharge Diagnoses with Status of Each Condition: Prodromal labor False labor Sinus tachycardia - HPI History of Present Illness: 1yo at 35.4 wks gestation who presents to Labor and Delivery for complaints of contractions They started after intercourse at 1300, and she notified CNM just before 1400, at which time they were mild and [id number]. Instructed to time them and call back in 30 mins if increased in frequency or intensity. Pt called again at 1515 to report ctx that were 3mins apart and 6/10 in intensity. Instructed to present to L&D. Presented at 1625 and put on monitor -Reports movement -Denies ctx/VB/LOF - care with [facility] which has been adequate, after transfer of care from [facility] at 32.2 wks - Complications *None -Dating Criteria *Initial U/S: 11.2wks (12/25/2020) not c/w LMP by 7 days, LMP dating kept; FINAL TIN 12/18/2020 -OB Hx *G1:current -Medications * vitamin-daily -Allergies *NKDA -Medical History *Non contributory -Surgical History *None -Family History *MGM- ovarian cancer *Mother with stroke/CVA -Social History *Non contributory - Labs, Immunizations, and Findings *Initial U/S: 11.2wks (12/25/2020) not c/w LMP by 7 days, LMP dating kept; FINAL TIN 12/18/2020 O pos/Rubella immune VZV-immune Gentic testing: 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 3VC.efw 53%. Glucola 100 Flu: declined TDAP 09/25/2020 GBS & GC/CT at 36 weeks HSV: denies self and partner Breast pump Rx 09/25/2020 MOD: . Spouse: Yonis. Baby GIRL- Kris ([email or web address]). Desires NCB. pp contraception: IUD- Mirena. Discussed need for new referral PAP: 01/11/2020-nilm -SVE 5/80/-2/mod/mid/intact -Vertex by digital exam -FHTs per flowsheet - CONSULTS | PROCEDURES Consultations: Assessment by ED physician - HOSPITAL COURSE Hospital Course: Patient was admitted with contractions every 2 minutes with initial exam of 5 cm dilation. Guven BMZ 12 mg IM x1. Given fluid bolus. GBS collected and started on cefasolin 2/2 penicillin allergy. CBC collected, no leukocytosis. No fevers or abdominal tenderness. No tachycardia. GCCT and vaginitis panel pending. UA wnl Patient was admitted for possible delivery as change in SVE was rapid and patient deemed unstable for transport. Fluid bolus was given and contractions became less intense. Repeat exam at 19:20 was 3/60/high/posterior/med, which was a marked improvement form prior exam Exam repeated at 21:20 was unchanged. She was observed overnight without event In the am, she remained tachycardic. EKG showed sinus tachycardia with rate of 115. TSH was 1.64. CMP showed low CO2 levels but was otherwise unremarkable. ED physician performed assessment that confirmed unremarkable exam. Patient was asymptomatic. Repeat SVE was 2/50/-2/posterior/mid Contractions had spaced to Q6-10 min and mild EFM 140 mod kaya 15x15 accels no decels CAT I tracing throughout period of observation No change in SVE over nearly 20 hours of observation Asymptomatic tachycardia Discharged to home with warning signs reviewed - ALLERGIES Allergies/Adverse Reactions: Allergies Allergy/AdvReac Type Severity Reaction Status Date / Time Penicillins Allergy Unknown Verified 05/24/20 15:52 - MEDICATIONS Home Medications: Ambulatory Orders Medication Instructions Recorded Confirmed No122/Iron/Folic Acid 1 tab PO DAILY 04/25/20 11/17/20 [ Multi Tablet] Docusate Sodium 100Mg Capsule 100 - 200 mg PO BID PRN #60 capsule 11/18/20 [Colace 100Mg Capsule] Docusate Sodium 100Mg Capsule 100 - 200 mg PO BID PRN #60 capsule 11/18/20 [Colace 100Mg Capsule] - LABS Result Diagrams: 11/17/20 17:00 11/18/20 08:04 - FOLLOW UP Follow Up: within the week with CNM - TIME SPENT Time Spent in Discharge (Minutes): 30"
== END 2020-11-18 11:32 | disposition home or self-care (01) | DRG 833 ==
LOC: WFO 16:03 → FBP 16:04 → WFO 17:41 → FBP 17:42
PROVIDERS: ADMIT Advanced Practice Midwife; ATTEND Obstetrics & Gynecology
DX: O47.03 False labor before 37 completed weeks of gestation, third trimester (principal); Z3A.35 35 weeks gestation of pregnancy; O99.891 Other specified diseases and conditions complicating pregnancy; R00.0 Tachycardia, unspecified
CPT/HCPCS: 36415; 80053; 81001; 84443; 85025; 86850; 86900; 86901; 87481; 87491; 87591; 87635; 87661; 87797; 87801; 93005; 99214; J0690; J7120; 87086

== ENCOUNTER 2020-11-22 22:20 | Outpatient (CLI) | payer OTHER ==
[2020-11-22 22:34] VITALS: BP 127/81
--- NOTE | 2020-11-23 18:54 | PROVIDER PROGRESS NOTE ---
- HPI Chief Complaint: Labor Check Current : Current EDU 12/18/20 Gestation 36 Weeks and 2 Days 1 Para 0 Vital Signs Temperature 36.8 C 11/22/20 22:29 Heart Rate 107 H 11/22/20 22:29 Respiratory Rate 16 11/22/20 22:29 Blood Pressure 127/81 H 11/22/20 22:29 O2 Saturation 100 11/22/20 22:29 Temperature 36.8 C 11/22/20 22:29 Heart Rate 107 H 11/22/20 22:29 Respiratory Rate 16 11/22/20 22:29 Blood Pressure 127/81 H 11/22/20 22:29 O2 Saturation 100 11/22/20 22:29 - Procedures OB Procedure Performed: NST Diagnosis/Indication for NST: Decreased movement - Plan Plan: S: Kadie presents to [facility] with c/o contractions. She denies vaginal bleeding or leakage of fluid. She reports +FM. She feels she has not had adequate hydration today. She was seen last week with similar contractions and states she has been having contractions since that time but what prompted her to come in is that they seem to be getting closer together and are now every 3-5 minutes. O: FHR baseline 130s, moderate variability, + accels, no decels SVE 3/50/high, posterior Contractions palpate mild every 4-5 minutes upon admission but decreased in frequency to every 7-10 minutes. Repeat SVE in 1 hour unchanged. A: 20yo @ 36.3wks by LMP 7 days different than 11.2wk U/S (LMP dating kept with TIN 12/18/2019) False labor FHR Category I P: Pt released home with precautions. Pt verbalized understanding and denies further questions or concerns at this time. FINAL DIAGNOSIS: False labor <37wks gestation
== END 2020-11-23 00:03 | disposition home or self-care (01) ==
LOC: WFO 22:20 → FBP 22:22 → WFO 11-23 00:03
PROVIDERS: ATTEND Nurse Practitioner Obstetrics & Gynecology
DX: O60.03 Preterm labor without delivery, third trimester (principal); Z3A.36 36 weeks gestation of pregnancy
CPT/HCPCS: 99213

== ENCOUNTER 2020-12-05 13:17 | Outpatient (CLI) | payer OTHER ==
[2020-12-05 13:35] VITALS: BP 117/72
--- NOTE | 2020-12-13 07:59 | PROCEDURE REPORT ---
- HPI Diagnosis/Indication for NST: Other (Pelvic pressure) Current EDU 12/18/20 Gestation 38 Weeks and 1 Days 1 Para 0 Vital Signs Temperature 98.2 F 12/05/20 13:34 Heart Rate 103 H 12/05/20 13:34 Respiratory Rate 18 12/05/20 13:34 Blood Pressure 117/72 12/05/20 13:34 O2 Saturation 99 12/05/20 13:34 Temperature 98.2 F 12/05/20 13:34 Heart Rate 103 H 12/05/20 13:34 Respiratory Rate 18 12/05/20 13:34 Blood Pressure 117/72 12/05/20 13:34 O2 Saturation 99 12/05/20 13:34 - Results and Plan Findings/Impression: Baseline: BPM 135 Variability: Moderate Accelerations: Present Decelerations: Absent Trends in FHR over time: no changes [place] contractions in 10 minutes: 2-3 Impression: reactive Category 1 NST Pt arrived with a sensation of pain and pressure in her SI region and pubic bone. 3cm, not feeling contractions much, wet mount done for pelvic pressure was normal. Discussed normal expansion of pelvic girdle, f/u PRN labor or decreased movement.
== END 2020-12-05 15:45 | disposition home or self-care (01) ==
LOC: WFO 13:17 → FBP 13:23 → WFO 15:45
PROVIDERS: ATTEND Obstetrics & Gynecology
DX: O99.891 Other specified diseases and conditions complicating pregnancy (principal); R10.2 Pelvic and perineal pain; Z3A.38 38 weeks gestation of pregnancy
CPT/HCPCS: 87210; 99214

== ENCOUNTER 2020-12-17 04:29 | Inpatient (IN) | payer OTHER ==
[2020-12-17] MEDS ORDERED: miSOPROStoL 200 MCG TABLET BC PRN (04:58)
[2020-12-17] MEDS ORDERED: TRANEXAMIC ACID 1,000 MG in SODIUM CHLORIDE 0.9% 100ML 100 ML IV PRN (04:58)
[2020-12-17] MEDS ORDERED: OXYTOCIN/SODIUM CHLORIDE 500 ML IV PRN (04:58)
[2020-12-17] MEDS ORDERED: ACETAMINOPHEN 325 MG TABLET PO PRN ×2 (04:58→11:04)
[2020-12-17] MEDS ORDERED: ONDANSETRON 4 MG/2 ML VIAL IVP PRN (04:58)
[2020-12-17] MEDS ORDERED: OXYTOCIN 10 UNIT/ML VIAL IM PRN (04:58)
[2020-12-17] MEDS ORDERED: SODIUM CHLORIDE FLUSH 0.9% 10 ML SYRINGE IVP PRN (04:58)
[2020-12-17] MEDS ORDERED: CARBOPROST TROMETHAMINE 250 MCG/ML AMP IM PRN (04:58)
[2020-12-17] MEDS ORDERED: METHYLERGONOVINE 0.2 MG/ML VIAL IM PRN (04:58)
[2020-12-17] MEDS ORDERED: LACTATED RINGERS 1,000 ML IV SCH (05:00)
--- NOTE | 2020-12-17 05:08 | HISTORY & PHYSICAL EXAMINATION ---
Admit History - Visit Reason Visit Reason: Contractions - : 1 Parity: 0 Premature: 0 Ectopic: 0 : 0 Care: positive: Other ([facility] after transfer of care from [facility] at 32.2wks) Risk/History: positive: None Complications This : positive: None Smoking Status: Former smoker - Mother's Labs Mother's Blood Type: positive: O Mother's RH: positive: Positive GBS: positive: Group B Step Negative Rubella Status: positive: Immune - Other Maternal History Other Maternal History: -20yo at 39.6 wks gestation who presents to Labor and Delivery with complaints of contractions that started at 0200 and have been quite strong -Reports movement -Denies ctx/VB/LOF - care with [facility] which has been adequate after transfer of care from [facility] at 32.2wks - Complications *None -Dating Criteria * Initial U/S: 11.2wks (12/25/2020) not c/w LMP by 7 days, LMP dating kept; FINAL TIN 12/18/2020 -OB Hx *G1: current -Medications * vitamin-daily -Allergies *Penicillin (moderate) -Medical History *Non contributory -Surgical History *None -Family History *MGM- cervical cancer *Mother- stroke/CVA -Social History *Non contributory - Labs, Immunizations, and Findings Initial U/S: 11.2wks (12/25/2020) not c/w LMP by 7 days, LMP dating kept; FINAL TIN 12/18/2020 O pos/Rubella immune VZV-immune Gentic testing: 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 3VC.efw 53%. Glucola 100 Flu: declined TDAP 09/25/2020 GBS at 35.4wks- neg 35 wk gbs HSV: denies self and partner Breast pump Rx 09/25/2020 MOD: . Spouse: Yonis. Baby GIRL- Kris (Erasto). Desires unmedicated delivery pp contraception: IUD- Mirena- will get at [facility] PAP: 01/11/2020-nilm -SVE 8/90% per nursing -EFW by floyd's 7.5# -FHTs per flowsheet -Assessment *20yo in active labor * Heart Tones- Category I -Plan *Admit to L&D *Monitoring- Continuous- OK to do intermittent when Cat I strip obtained *Comfort measures available- position changes, whirlpool tub, fentanyl, and epidural per maternal preference *Diet/Activity- per maternal preference *Anticipate Meds/Allgy - Home Medications Home Medications: Ambulatory Orders Medication Instructions Recorded Confirmed No122/Iron/Folic Acid 1 tab PO DAILY 04/25/20 11/17/20 [ Multi Tablet] Docusate Sodium 100Mg Capsule 100 - 200 mg PO BID PRN #60 capsule 11/18/20 [Colace 100Mg Capsule] Docusate Sodium 100Mg Capsule 100 - 200 mg PO BID PRN #60 capsule 11/18/20 [Colace 100Mg Capsule] - Allergies Allergies/Adverse Reactions: Allergies Allergy/AdvReac Type Severity Reaction Status Date / Time Penicillins Allergy Unknown Verified 05/24/20 15:52 Review of Systems - All Other Systems All Other Systems: reports: Reviewed and negative Physical - Abdominal Exam Contraction Frequency (min/apart): 3-4 Contraction Intensity: positive: Moderate to strong Uterine Resting Tone: positive: Soft - Monitoring Heart Rate Baseline: 140 Strip Review: positive: Category I - Presentation Presentation: positive: Vertex - Vaginal Exam Membranes: positive: Membranes intact Dilation (in cm): 8 Effacement (%): 90 Station: positive: -3
[2020-12-17 05:53] LABS: BASOPHILS % (AUTO) 0.3 %; EOSINOPHILS # (AUTO) 0.1 10^3/uL (0.0-0.7); EOSINOPHILS % (AUTO) 0.5 %; HGB - HEMOGLOBIN 10.8 g/dL (12.0-16.0); LYMPHOCYTES # (AUTO) 2.6 10^3/uL (1.5-3.5); LYMPHOCYTES % (AUTO) 27.7 %; MEAN CORPUSCULAR HEMOGLOBIN 26.6 pg (27.0-31.0); MEAN CORPUSCULAR HGB CONC 31.8 g/dL (32.0-36.0); MEAN CORPUSCULAR VOLUME 83.7 fL (81.0-99.0); MEAN PLATELET VOLUME 11.6 fL (7.9-10.8); MONOCYTES # (AUTO) 0.5 10^3/uL (0.0-1.0); MONOCYTES % (AUTO) 5.4 %; NEUTROPHILS % (AUTO) 65.1 %; PLT - PLATELET COUNT 210 10^3/uL (130-450); RED BLOOD COUNT 4.06 10^6/uL (4.20-5.40); WHITE BLOOD COUNT 9.3 x10^3/uL (4.8-10.8)
[2020-12-17 07:07] LABS: C. PNEUMONIAE- RESP PCR PANEL NOT DETECTED
[2020-12-17] MEDS ORDERED: SODIUM CHLORIDE FLUSH 0.9% 10 ML SYRINGE IVP SCH (09:00)
[2020-12-17] MEDS: LIDOCAINE-MPF 1% 30 ML VIAL ID PRN ×2 (09:20→10:01)
[2020-12-17] MEDS ORDERED: fentaNYL 100 MCG/2 ML VIAL IVP SCH (09:26)
--- NOTE | 2020-12-17 10:59 | PROCEDURE REPORT ---
Hospitalist Procedure Note - Procedure Note Procedure Note: Janaed to see the patient who is spontaneously vaginally delivered a live female which was compound presentation. There was some delay in from delivery of the head to the body secondary to cessation of contractions. At time of delivery she suffered a laceration of the vagina on the right-hand side as well as a right sided labial laceration which gaped about 2 cm the left labial laceration also takes about 1 cm the vaginal laceration of the right sulcus about 3 to 4 cm. The perineal laceration was only minimal. The lacerations were reinjected with local anesthetic. The right labial laceration was closed with subcuticular stitch of 3-0 Vicryl. The left labial lacerations are then closed by Nathaly Calderon with 3-0 Vicryl at this point the right sulcus laceration was closed with a running locking suture of #3-0 Vicryl. Good hemostasis was noted the perineum was then closed in the standard fashion with 3-0 Vicryl deep and subcuticular. At the end of the procedure there is no evidence of any active bleeding. Patient tolerated procedure well. Sponge and needle counts were correct. Nathaly Yumiko was very helpful with retraction and splinting.
--- NOTE | 2020-12-17 11:02 | DELIVERY NOTE ---
Delivery Note - Labor Labor: positive: Spontaneous - Delivery Method Delivery Method: positive: Spontaneous vaginal delivery - Presentation Presentation: positive: Vertex, EUGENIA - right occiput anterior - Nuchal Cord Nuchal Cord: positive: None - Amniotic Fluid Description Amniotic Fluid Description: positive: Clear - Episiotomy Type Episiotomy Type: positive: None - Laceration Laceration: positive: 1st degree, Labial, Sulcus, Vaginal - Suture Suture Type: positive: Vicryl Suture Size: positive: 3-0, 4-0 - Delivery Outcome Delivery Outcome: positive: Livebirth - : positive: Placed in direct skin contact with mother, Stimulated, Warmed, [place] used sex: positive: Female - Cord Cord: positive: 3 vessels - Placenta Placenta: positive: Intact, Spontaneous - Estimated Blood Loss Estimated Blood Loss (in cc): 300 - Post Delivery Events Post Delivery Events: positive: No post delivery events - Delivery Comments (Free Text/Narrative) Delivery Comments (Free Text/Narrative): Labor: This 20yo @ 39.6wks gestation by presented to [facility] on 12/17/2020 in active labor. Cervix was 8/90/-2 and vertex. FHR pattern demonstrated Category I pattern. Normal labor course. AROM occurred @ 0649 and was noted to be a moderate amount of clear fluid. Patient progressed to c/c/0 at 0731 with spontaneous pushing effort at 0733. : Normal of viable female infant on 12/17/2020 @ 0900. No nuchal cord. EUGENIA position with left compound arm. The was placed on maternal abdomen, stimulated, dried, and placed skin to skin. 's were 8/9 at 1 and 5 min respectively. Pitocin administered via IV for hemostasis. The umbilical cord was allowed to stop pulsating at which time it was doubly clamped by CNM and cut by FOB. 3VC. Cord blood was obtained. Fundal massage and gentle cord traction applied for active management of the third stage. Placenta delivered spontan eously and intact at 0906. EBL 300mL. Fourth stage: Uterine fundus firm and there is no excessive bleeding. The perineum, vagina, and cervix were inspected and noted to have 1st degree bilateral labial with right sulcus and 1st degree perineal lacerations. Due to the complexity of the laceration, operations executive physician requested to complete repair. Vaginal examination following repair was completed. Tissues well approximated. Skin to skin contact maintained, family bonding well. Both mother and baby were left in stable condition.
[2020-12-17] MEDS ORDERED: WITCH HAZEL/GLYCERIN 1 PAD TOP PRN (11:03)
[2020-12-17] MEDS ORDERED: HYDROCORTISONE 1% CREAM 28 GM TUBE PR PRN (11:03)
[2020-12-17] MEDS: IBUPROFEN 800 MG TABLET PO SCH ×2 (12:52→20:55)
[2020-12-17] MEDS: ACETAMINOPHEN 500 MG TABLET PO PRN ×2 (12:52→20:55)
[2020-12-17] MEDS: DOCUSATE SODIUM 100 MG CAPSULE PO SCH (20:55)
[2020-12-18] MEDS: ACETAMINOPHEN 500 MG TABLET PO PRN (04:58)
[2020-12-18] MEDS: IBUPROFEN 800 MG TABLET PO SCH ×2 (04:59→11:04)
[2020-12-18] MEDS: DOCUSATE SODIUM 100 MG CAPSULE PO SCH (08:00)
[2020-12-18 08:10] VITALS: BP 92/53
--- NOTE | 2020-12-18 10:25 | Discharge Plan ---
Discharge Plan Problem Reviewed?: Yes Disposition: Home, Self Care Condition: Good Diet: Regular Activity Restrictions: No Restrictions Shower Restrictions: No Driving Restrictions: No Weight Bearing: Full Weight No Smoking: If you smoke, Please STOP! Call for help. Follow-up with: Nathaly Calderon CNM, ARNP [Provider Admit Priv/Credential] -
--- NOTE | 2020-12-18 10:29 | PROVIDER PROGRESS NOTE ---
Subjective - Subjective Subjective: FINAL PROGRESS NOTE: S: Bonding well with baby. without difficulty. Pain is well controlled with oral medications. Bleeding decreased and is light. supportive at the bedside. They desire to be discharged home today and are entirely willing to present for a weight check for their tomorrow if needed. O: BP 92/53, T 36.5, HR 89, RR 17 Heart RRR w/o M/G/R, lungs CTAB, abdomen soft and nontender with fundus firm at U-1, perineum intact, light lochia rubra, bilateral LE's no edema. Mood is good. A: 20yo -->P1 PPD#1 s/p TSVD viable female infant P: Reviewed pp self care and warning s/sx and when to present. Pt has emergency contact information. Encouraged continuation of PNV while . Advised continuation of ibuprofen and tylenol OTC as needed for pain management. F/u in 1 week with myself at [facility] [place] for routine pp visit or sooner PRN. Pt and partner at the bedside both verbalized understanding and agrees to above plan. She denies further questions or concerns at this time. Objective - Vital Signs/Intake & Output Vital Signs: Vital Signs x48h Temp Pulse Resp BP Pulse Ox 12/18/20 08:00 36.5 C 89 17 92/53 L 99 12/18/20 04:40 36.7 C 90 20 106/60 99 Intake & Output: Intake & Output 12/15/20 12/16/20 12/17/20 12/18/20 23:59 23:59 23:59 23:59 Intake Total 500.00 350 Output Total 400 Balance 100.00 350 - Lab Results Fish Bones: 12/17/20 05:21
--- NOTE | 2020-12-18 11:09 | DISCHARGE SUMMARY ---
Physician: LASHANDA Bridges DATE OF ADMISSION: 12/17/2020 DATE OF DISCHARGE: 12/18/2020 DIAGNOSES ON ADMISSION: 1. A 20-year-old G1, P0-0-0-0 at 39.6 weeks gestation. 2. Active labor. DIAGNOSES ON DISCHARGE: 1. A 20-year-old G1, P1-0-0-1, status post spontaneous vaginal delivery on 12/17/2020. 2. Normal recovery. 3. . BRIEF HISTORY: She is a patient of [facility], who presented on 12/17/2020, in acti ve labor. Cervix was 8 cm dilated, 90% effaced, -1 station in vertex position. Normal labor course. She spontaneously progressed to deliver a viable female on 12/17/2020, at 0900. Apgars were 8 and 9 at 1 and 5 minutes respectively. EBL 300 mL. The patient was noted to have bilateral first -degree labial lacerations with right sulcus laceration and first-degree perineal lacerations. Due t o complexity of the lacerations, the on-call physician was requested to complete repair, which was do ne. She has been doing well in her course. She is ambulating and tolerating a regular diet. She is urinating without difficulty and her lochia is normal. Her pain is well controlled with oral medications. She will be discharged home today on day #1 with instructions to continue he r vitamin while and to continue taking ibuprofen and Tylenol [id number] as needed for pain management. She intends to followup with myself at [facility] in 1 week for routine visit or sooner if needed. She has been given precautions to call if she has any worsening fevers, chills, abdominal pain, increased bleeding or foul smelling vaginal loc hia. TD: 12/18/2020 10:37
--- NOTE | 2020-12-18 13:36 | Labor Flowsheet ---
Labor Flowsheet Datetime Report Generated by CPN: 12/18/2020 13:36 Datetime: 12/18/2020 07:57 VITAL SIGNS NBP Sys/Flor/Mean (mmHg): 92 : 53 : 62 Pulse: 90 Datetime: 12/17/2020 15:55 SpO2 (%): 99 Datetime: 12/17/2020 10:46 Stage of : Recovery Datetime: 12/17/2020 10:02 Membranes Ruptured Date/Time: 12/17/2020 06:49 Membranes Rupture Method: Artificial Amniotic Fluid Color: Clear Amniotic Fluid Amount: Moderate Amniotic Fluid Odor: Normal Datetime: 12/17/2020 09:51 Patient Care Comments: Dr. Giem @ bedside for repair Datetime: 12/17/2020 09:14 COMMUNICATION LaborFlag: Labor Datetime: 12/17/2020 08:29 PATIENT CARE Patient Position/Activity: Semi-Fowlers Pushing Position: Pushing Lithotomy Datetime: 12/17/2020 07:58 Comments: external monitors applied Datetime: 12/17/2020 07:57 Stage 2 Comments: maternal position change from hands and knees Datetime: 12/17/2020 07:47 UTERINE ACTIVITY Monitor Mode: Palpation Frequency (min): 2-3 Quality: Strong Duration (sec): 60-90 Pattern: Normal: <= 5 Contractions in 10 Minutes Resting Tone (Palpate): Relaxed ASSESSMENT A Monitor Mode: Doppler FHR Baseline Rate : 136 Datetime: 12/17/2020 07:33 STAGE 2 Pushing: Coached on Pushing; Urge to Push Pushing Progress: Descent with Pushing Datetime: 12/17/2020 07:31 VAGINAL EXAM Dilatation (cm): 10.0 Effacement (%): 100 Exam by: marquita Datetime: 12/17/2020 06:29 Respirations: 22 Datetime: 12/17/2020 06:21 PAIN Pain Scale: 10 Pain Presence: Intermittent Pain Location: Abdomen; Perineum Pain Coping: Crying; Writhing Pain Assessment Comments: nitrous use Datetime: 12/17/2020 06:06 Station: -2
== END 2020-12-18 13:30 | disposition home or self-care (01) | DRG 807 ==
LOC: WFO 04:29 → FBP 04:31 → WFO 04:58
PROVIDERS: ADMIT Advanced Practice Midwife; ATTEND Nurse Practitioner Obstetrics & Gynecology
PROC: 10E0XZZ Delivery of Products of Conception, External Approach (ICD-10-PCS; principal; 2020-12-17)
PROC: 0HQ9XZZ Repair Perineum Skin, External Approach (ICD-10-PCS; 2020-12-17)
PROC: 10907ZC Drainage of Amniotic Fluid, Therapeutic from Products of Conception, Via Natural or Artificial Opening (ICD-10-PCS; 2020-12-17)
DX: O70.0 First degree perineal laceration during delivery (principal); Z37.0 Single live birth; O32.6XX0 Maternal care for compound presentation, not applicable or unspecified; Z3A.39 39 weeks gestation of pregnancy
CPT/HCPCS: 0202U; 85025; 86850; 86900; 86901; 99213; A9270; J7120

== ENCOUNTER 2020-12-19 10:08 | Outpatient (CLI) | payer OTHER ==
--- NOTE | 2020-12-19 12:51 | Labor Flowsheet ---
Labor Flowsheet Datetime Report Generated by CPN: 12/19/2020 12:50 Datetime: 12/18/2020 07:57 VITAL SIGNS NBP Sys/Flor/Mean (mmHg): 92 : 53 : 62 Pulse: 90 Datetime: 12/17/2020 15:55 SpO2 (%): 99 Datetime: 12/17/2020 10:46 Stage of : Recovery Datetime: 12/17/2020 10:02 Membranes Ruptured Date/Time: 12/17/2020 06:49 Membranes Rupture Method: Artificial Amniotic Fluid Color: Clear Amniotic Fluid Amount: Moderate Amniotic Fluid Odor: Normal Datetime: 12/17/2020 09:51 Patient Care Comments: Dr. Giem @ bedside for repair Datetime: 12/17/2020 09:14 COMMUNICATION LaborFlag: Labor Datetime: 12/17/2020 08:29 PATIENT CARE Patient Position/Activity: Semi-Fowlers Pushing Position: Pushing Lithotomy Datetime: 12/17/2020 07:58 Comments: external monitors applied Datetime: 12/17/2020 07:57 Stage 2 Comments: maternal position change from hands and knees Datetime: 12/17/2020 07:47 UTERINE ACTIVITY Monitor Mode: Palpation Frequency (min): 2-3 Quality: Strong Duration (sec): 60-90 Pattern: Normal: <= 5 Contractions in 10 Minutes Resting Tone (Palpate): Relaxed ASSESSMENT A Monitor Mode: Doppler FHR Baseline Rate : 136 Datetime: 12/17/2020 07:33 STAGE 2 Pushing: Coached on Pushing; Urge to Push Pushing Progress: Descent with Pushing Datetime: 12/17/2020 07:31 VAGINAL EXAM Dilatation (cm): 10.0 Effacement (%): 100 Exam by: marquita Datetime: 12/17/2020 06:29 Respirations: 22 Datetime: 12/17/2020 06:21 PAIN Pain Scale: 10 Pain Presence: Intermittent Pain Location: Abdomen; Perineum Pain Coping: Crying; Writhing Pain Assessment Comments: nitrous use Datetime: 12/17/2020 06:06 Station: -2
== END 2020-12-19 10:55 | disposition home or self-care (01) ==
LOC: WFO 10:08 → FBP 10:12 → WFO 10:55
PROVIDERS: ATTEND Nurse Practitioner Obstetrics & Gynecology
DX: O92.70 Unspecified disorders of lactation (principal)
CPT/HCPCS: 99403

== ENCOUNTER 2022-10-05 08:50 | Emergency (ER) | payer OTHER ==
[2022-10-05 11:34] LABS: B. PARAPERTUSSIS- RESP PCR PAN NOT DETECTED; B. PERTUSSIS- RESP PCR PANEL NOT DETECTED; C. PNEUMONIAE- RESP PCR PANEL NOT DETECTED; CORONAVIRUS 229E-RESP PCR NOT DETECTED; CORONAVIRUS HKU1-RESP PCR NOT DETECTED; CORONAVIRUS NL63-RESP PCR NOT DETECTED; CORONAVIRUS OC43-RESP PCR NOT DETECTED; HUMAN METAPNEUMOVIRUS NOT DETECTED; INFLUENZA A H3- RESP PCR PANEL DETECTED; INFLUENZA B - RESP PCR PANEL NOT DETECTED; M. PNEUMONIAE- RESP PCR PANEL NOT DETECTED; PARAINFLUENZA VIRUS 1 NOT DETECTED; PARAINFLUENZA VIRUS 2 NOT DETECTED; PARAINFLUENZA VIRUS 3 NOT DETECTED; PARAINFLUENZA VIRUS 4 NOT DETECTED; RHINOVIRUS/ENTEROVIRUS NOT DETECTED; RSV- RESP PCR PANEL NOT DETECTED; SARS-CoV-2 -RESP PCR PANEL NOT DETECTED
--- NOTE | 2022-10-05 11:35 | ED Physician Documentation ---
History of Present Illness - Stated complaint Stated Complaint: HIP/LEG BILAT PAIN - Chief complaint Chief Complaint: General - History obtained from History obtained from: Patient - Additonal information Additional information: Pt is 22 yo F presenting for evaluation of dry cough, congestion, fatigue, headache, fever/chills, since Thursday. She feels body aches especially in her hips and legs but has been able to ambulate without issue. She also expresses concerns that her nails appeared bluish yesterday but that has resolved. She denies CP, sore throat, SOB, dizziness. Review of Systems Constitutional: reports: Fever, Chills, Myalgias Nose: reports: Congestion Cardiac: denies: Chest pain / pressure Respiratory: denies: Dyspnea GI: reports: Vomiting. denies: Abdominal Pain : reports: Dysuria Musculoskeletal: reports: Joint pain Neurologic: denies: Focal weakness PD PAST MEDICAL HISTORY - Past Medical History Cardiovascular: None Respiratory: None Neuro: None Endocrine/Autoimmune: None GI: None [employer]: None : None HEENT: None Psych: None Musculoskeletal: None Derm: None - Past Surgical History Past Surgical History: No - Present Medications Home Medications: Ambulatory Orders Medication Instructions Recorded Confirmed No Known Home Medications 10/05/22 10/05/22 - Allergies Allergies/Adverse Reactions: Allergies Allergy/AdvReac Type Severity Reaction Status Date / Time Penicillins Allergy Unknown Verified 10/05/22 09:22 - Social History Does the pt smoke?: No Smoking Status: Never smoker Does the pt drink ETOH?: No Does the pt have substance abuse?: No - Immunizations Immunizations are current?: Yes PD ED PE NORMAL - General General: Alert and oriented X 3, No acute distress, Well developed/nourished - HEENT HEENT: Atraumatic, Moist mucous membranes, Pharynx benign - Neck Neck: Supple, no meningeal sign - Cardiac Cardiac: Strong equal pulses, Other (Regular rhythm; tachycardic low 100s) - Respiratory Respiratory: No respiratory distress, Clear bilaterally - Abdomen Abdomen: Soft, Non tender - Derm Derm: Warm and dry - Extremities Extremities: No deformity, No tenderness to palpate, Normal ROM s pain, No edema - Neuro Neuro: No motor deficit, No sensory deficit Results - Vitals Vitals: Vital Signs - 24 hr 10/05/22 10/05/22 09:17 11:44 Temperature 37.6 C 37.7 C Heart Rate 108 H 112 H Respiratory 18 14 Rate Blood Pressure 110/66 113/79 O2 Saturation 98 100 Oxygen O2 Source Room air - Labs Labs: Laboratory Tests 10/05/22 09:57 Nasal Adenovirus (PCR) NOT DETECTED Nasal B. parapertussis DNA (PCR) NOT DETECTED Nasal Coronavir 229E PCR NOT DETECTED Nasal Coronavir HKU1 PCR NOT DETECTED Nasal Coronavir NL63 PCR NOT DETECTED Nasal Coronavir OC43 PCR NOT DETECTED Nasal Enterovir/Rhinovir PCR NOT DETECTED Nasal Influenza A H3 PCR DETECTED A Nasal Influenza B PCR NOT DETECTED Nasal Parainfluen 1 PCR NOT DETECTED Nasal Parainfluen 2 PCR NOT DETECTED Nasal Parainfluen 3 PCR NOT DETECTED Nasal Parainfluen 4 PCR NOT DETECTED Nasal RSV (PCR) NOT DETECTED Nasal B.pertussis DNA PCR NOT DETECTED Nasal C.pneumoniae (PCR) NOT DETECTED Cecil Human Metapneumo PCR NOT DETECTED Nasal M.pneumoniae (PCR) NOT DETECTED Nasal SARS-CoV-2 (PCR) NOT DETECTED PD MEDICAL DECISION MAKING - ED course ED course: Pt with flu like illness. Slightly tachycardic but otherwise stable vitals and well appearing. Flu A+. She is non labored with her breathing, tolerating PO. Discussed continuing with supportive care and advised on return precautions. Departure - Departure Disposition: 01 Home, Self Care Clinical Impression: Myalgia, Viral illness Condition: Stable Instructions: ED Viral Syndrome Comments: Your symptoms suggest a viral illness. Your respiratory panel is still pending which we will check for COVID, RSV, influenza as well as a number of other common cold viruses.Please continue with using acetaminophen or ibuprofen as needed for fever and body aches as well as continuing with hydration and getting plenty of rest.If you have any worsening symptoms such as labored breathing then please consider return to the ER. Forms: Activity restrictions Discharge Date/Time: 10/05/22 11:46
[2022-10-05 11:45] VITALS: BP 113/79
== END 2022-10-05 11:46 | disposition home or self-care (01) ==
LOC: ED 08:50
DX: M79.10 Myalgia, unspecified site (principal); B34.9 Viral infection, unspecified; Z20.822 Contact with and (suspected) exposure to COVID-19
CPT/HCPCS: 87633; 99282; 99283

== ENCOUNTER 2023-07-21 07:45 | Outpatient (CLI) | payer OTHER ==
--- NOTE | 2023-07-21 17:43 | XRAY Report ---
PROCEDURE: Foot 3 View LT INDICATIONS: LEFT 5TH MT FX TECHNIQUE: 3 views of the foot were acquired. COMPARISON: 06/14/2023. FINDINGS: Bones: Again noted is minimally displaced fifth metatarsal base fracture with persistent up to 2 mm diastases at fracture site. No new fracture or dislocation. Alignment of left foot is anatomic. No ware spicious bony lesions. Soft tissues: No suspicious soft tissue calcifications or masses. IMPRESSION: Stable appearance of minimally displaced fifth metatarsal base fracture. No new fracture or dislocati on. Reviewed by: Meir Kingston MD on 07/21/2023 5:41 PM PDT Approved by: Meir Kingston MD on 07/21/2023 5:41 PM PDT Station ID: [id number]
== END 2023-07-21 23:59 | disposition home or self-care (01) ==
LOC: DI.WOS 07:45
PROVIDERS: ATTEND Physician Assistant Surgical
DX: S92.352D Displaced fracture of fifth metatarsal bone, left foot, subsequent encounter for fracture with routine healing (principal)

== ENCOUNTER 2023-10-07 08:00 | Outpatient (CLI) | payer OTHER ==
[2023-10-07 14:15] LABS: BACTERIAL VAGINOSIS DNA NEGATIVE (NEGATIVE); CANDIDA GLABRATA DNA NEGATIVE (NEGATIVE); CANDIDA GROUP DNA NEGATIVE (NEGATIVE); CANDIDA KRUSEI DNA NEGATIVE (NEGATIVE); TRICHOMONAS VAGINALIS DNA NEGATIVE (NEGATIVE)
[2023-10-07 16:20] LABS: CHLAMYDIA TRACHOMATIS DNA NEGATIVE (NEGATIVE); NEISSERIA GONORRHOEAE DNA NEGATIVE (NEGATIVE)
== END 2023-10-07 23:59 | disposition home or self-care (01) ==
LOC: LAB.WC 08:00
PROVIDERS: ATTEND Obstetrics & Gynecology
DX: N93.9 Abnormal uterine and vaginal bleeding, unspecified (principal)
CPT/HCPCS: 81514; 87491; 87591; 87661

== ENCOUNTER 2023-10-17 07:01 | Outpatient (CLI) | payer OTHER ==
--- NOTE | 2023-10-19 08:48 | Ultrasound Report ---
PROCEDURE: Pelvic w/Transvaginal INDICATIONS: AUB TECHNIQUE: Real-time scanning was performed of the pelvic organs, with image documentation. Additional endovagi nal scanning was necessary due to incomplete visualization of the adnexal and endometrial structures by transabdominal scanning. COMPARISON: None. FINDINGS: Uterus: Uterus is anteverted and normal in size at 7.8 x 3.9 x 4.7 cm. (Volume 74.9 mL) The myometr ium is heterogeneous. The endometrium measures 4.4 mm in combined thickness. Intrauterine device is low lying within the lower uterine segment and cervix. The arms extend into the myometrium. Ovaries: The right ovary measures 2.2 x 1.6 x 1.5 cm, with a calculated ovarian volume of 2.91 cc. The left ovary measures 2.8 x 1.7 x 1.9 cm, with a calculated ovarian volume of 4.6 cc. The ovaries have a normal sonographic appearance. Less than 12 follicles can be seen in each ovary. No adnexal masses are seen. No cystic lesions measuring greater than 3 cm. Other: No pathologic free abdominal or pelvic fluid. IMPRESSION: 1.Intrauterine device is low lying within the lower uterine segment and cervix. 2.Normal sonographic appearance of the bilateral ovaries. Reviewed by: Tatiana Smallwood MD on 10/19/2023 8:47 AM PST Approved by: Tatiana Smallwood MD on 10/19/2023 8:47 AM PST Station ID: [id number]
== END 2023-10-17 07:02 | disposition home or self-care (01) ==
LOC: DI 07:01
PROVIDERS: ATTEND Obstetrics & Gynecology
DX: N93.9 Abnormal uterine and vaginal bleeding, unspecified (principal); Z97.5 Presence of (intrauterine) contraceptive device

== ENCOUNTER 2023-11-25 08:00 | Outpatient (CLI) | payer OTHER ==
[2023-11-25 21:02] LABS: BASOPHILS # (AUTO) 0.1 10^3/uL (0.0-0.1); BASOPHILS % (AUTO) 0.8 %; EOSINOPHILS # (AUTO) 0.2 10^3/uL (0.0-0.7); HCT - HEMATOCRIT 41.5 % (37.0-47.0); HGB - HEMOGLOBIN 13.8 g/dL (12.0-16.0); LYMPHOCYTES # (AUTO) 3.1 10^3/uL (1.5-3.5); LYMPHOCYTES % (AUTO) 42.7 %; MEAN CORPUSCULAR HEMOGLOBIN 29.8 pg (27.0-31.0); MEAN CORPUSCULAR HGB CONC 33.3 g/dL (32.0-36.0); MEAN CORPUSCULAR VOLUME 89.6 fL (81.0-99.0); MEAN PLATELET VOLUME 10.5 fL (7.9-10.8); MONOCYTES # (AUTO) 0.3 10^3/uL (0.0-1.0); MONOCYTES % (AUTO) 3.4 %; NEUTROPHILS # (AUTO) 3.8 10^3/uL (1.5-6.6); PLT - PLATELET COUNT 291 10^3/uL (130-450); RED BLOOD COUNT 4.63 10^6/uL (4.20-5.40); RED CELL DISTRIBUTION WIDTH 12.1 % (12.0-15.0); WHITE BLOOD COUNT 7.4 x10^3/uL (4.8-10.8)
[2023-11-25 21:20] LABS: CALCIUM 9.4 mg/dL (8.5-10.3); CREATININE 0.7 mg/dL (0.6-1.3); POTASSIUM 3.8 mmol/L (3.5-4.5)
[2023-11-27 03:10] LABS: HCV AB Non Reactive (Non Reactive)
[2023-11-27 05:13] LABS: HIV SCREEN 4TH GENERATION Non Reactive (Non Reactive)
== END 2023-11-25 23:59 | disposition home or self-care (01) ==
LOC: LAB.N 08:00
PROVIDERS: ATTEND Nurse Practitioner
DX: S61.231A Puncture wound without foreign body of left index finger without damage to nail, initial encounter (principal); Y99.9 Unspecified external cause status
CPT/HCPCS: 36415; 80048; 85025; 86317; 86803; 87389

== ENCOUNTER 2024-02-13 08:00 | Outpatient (CLI) | payer OTHER ==
[2024-02-13 20:33] LABS: CALCIUM 9.5 mg/dL (8.5-10.3); CREATININE 0.6 mg/dL (0.6-1.3); POTASSIUM 3.8 mmol/L (3.5-4.5)
== END 2024-02-13 23:59 | disposition home or self-care (01) ==
LOC: LAB.N 08:00
PROVIDERS: ATTEND Physician Assistant Medical
DX: R25.2 Cramp and spasm (principal)
CPT/HCPCS: 36415; 80048